=== PATIENT | female | born 1940 | race Caucasian/White ===

== ENCOUNTER 2020-11-14 04:19 | Observation (INO) | payer MEDICARE ==
[2020-11-14 04:46] LABS: Basophils % (A) 0 %; Eosinophils # (A) 0.1 k/uL (0-0.7); Eosinophils % (A) 2 %; HCT 41.8 % (34.0-46.0); HGB 14.1 gm/dL (11.4-16.0); Lymphocytes # (A) 0.7 k/uL (1.0-4.8); Lymphocytes % (A) 11 %; MCH 29.1 pg (25.0-35.0); MCHC 33.6 g/dL (31.0-37.0); MCV 86.6 fL (80.0-100.0); Mean Platelet Volume 9.3; Monocytes # (A) 0.2 k/uL (0-1.0); Monocytes % (A) 3 %; Neutrophils # (A) 5.2 k/uL (1.3-7.7); Neutrophils % (A) 83 %; Platelet Count 166 k/uL (150-450); RBC 4.83 m/uL (3.80-5.40); RDW 13.6 % (11.5-15.5); WBC 6.3 k/uL (3.8-10.6)
[2020-11-14 04:57] LABS: ALT 18 U/L (4-34); AST 35 U/L (14-36); African American GFR (CKD) 46 (>60 ml/min/1.73 sqM); Albumin 4.5 g/dL (3.5-5.0); Alcohol <10 mg/dL; Alkaline Phosphatase 60 U/L (38-126); Anion Gap 7 mmol/L; Blood Urea Nitrogen 23 mg/dL (7-17); Calcium 9.3 mg/dL (8.4-10.2); Carbon Dioxide 25 mmol/L (22-30); Chloride 106 mmol/L (98-107); Glucose 144 mg/dL (74-99); Non-African American GFR(CKD) 40 (>60 ml/min/1.73 sqM); Potassium 4.2 mmol/L (3.5-5.1); Sodium 138 mmol/L (137-145); Total Bilirubin 0.7 mg/dL (0.2-1.3); Total Protein 7.9 g/dL (6.3-8.2)
[2020-11-14 05:00] LABS: Partial Thromboplastin Time 23.3 sec (22.0-30.0); Prothrombin Time 10.6 sec (9.0-12.0)
--- NOTE | 2020-11-14 05:04 | ED ---
Altered Mental Status HPI - General Chief Complaint: Altered Mental Status Stated Complaint: Altered Mental Status Time Seen by Provider: 11/14/20 04:32 Source: patient Mode of arrival: ambulatory Limitations: altered mental status - History of Present Illness Initial Comments: This patient is an 79-year-old woman who is brought to the hospital by a byrodney tander who found her wandering outside. The patient does appear disoriented and she is not able to give any additional history about how she came to be wandering outside. She is denying complaints. Patient does request a blanket MD Complaint: confusion -: unknown Severity: moderate Consistency of Symptoms: unknown Context: unknown Associated Symptoms: denies other symptoms - Related Data Home Medications Medication Instructions Recorded Confirmed Atorvastatin [Lipitor] 10 mg PO DAILY 11/14/20 11/14/20 Citalopram Hydrobromide [CeleXA] 10 mg PO DAILY 11/14/20 11/14/20 Donepezil [Aricept] 10 mg PO DAILY 11/14/20 11/14/20 Meclizine [Antivert] 12.5 mg PO DAILY 11/14/20 11/14/20 amLODIPine [Norvasc] 5 mg PO DAILY 11/14/20 11/14/20 Allergies Allergy/AdvReac Type Severity Reaction Status Date / Time No Known Allergies Allergy Verified 11/14/20 10:17 Review of Systems ROS Statement: Those systems with pertinent positive or pertinent negative responses have been documented in the HPI. ROS Other: All systems not noted in ROS Statement are negative. Limitations: ROS unobtainable due to patients medical condition Respiratory: Denies: dyspnea Cardiovascular: Denies: chest pain Neurological: Denies: headache Past Medical History - Past Family History Mother Family Medical History: Cancer Additional Family Medical History / Comment(s): Mother at 36 yrs from uterine/breast cancer. Father Family Medical History: Cancer Additional Family Medical History / Comment(s): Father of liver cancer in his 60s. General Exam Limitations: altered mental status General appearance: alert, cachectic Head exam: Present: normocephalic, other (Left facial abrasion) Eye exam: Present: PERRL, EOMI. Absent: conjunctival injection, nystagmus ENT exam: Present: mucous membranes dry Neck exam: Present: normal inspection, full ROM. Absent: tenderness Respiratory exam: Present: normal lung sounds bilaterally. Absent: respiratory distress, wheezes, rales, rhonchi, stridor, chest wall tenderness Cardiovascular Exam: Present: regular rate, normal rhythm, normal heart sounds. Absent: systolic murmur, diastolic murmur, rubs, gallop GI/Abdominal exam: Present: soft. Absent: distended, tenderness, guarding, rebound, rigid, mass Extremities exam: Present: normal inspection, normal capillary refill. Absent: pedal edema, calf tenderness Back exam: Present: normal inspection. Absent: CVA tenderness (R), CVA tenderness (L), vertebral tenderness Neurological exam: Present: alert, CN II-XII intact, other (Neurologic exam slightly limited as patient only able to follow very simple commands only able to answer very simple questions. No apparent focal deficit). Absent: oriented X3 (Patient oriented only to person), motor sensory deficit Skin exam: Present: warm, dry, intact, normal color. Absent: rash Course Vital Signs 11/14/20 11/14/20 11/14/20 04:22 04:30 05:00 Temperature 97.7 F Pulse Rate 85 96 79 Respiratory 18 16 16 Rate Blood Pressure 175/84 170/81 167/81 O2 Sat by Pulse 97 96 96 Oximetry 11/14/20 11/14/20 11/14/20 05:30 07:49 11:40 Temperature 98.1 F Pulse Rate 83 80 65 Respiratory 14 16 16 Rate Blood Pressure 173/76 144/68 157/75 O2 Sat by Pulse 96 97 95 Oximetry 11/14/20 11/14/20 11/14/20 11:51 14:38 14:52 Temperature 98.7 F Pulse Rate 72 Respiratory 16 Rate Blood Pressure 153/87 141/87 O2 Sat by Pulse 97 95 97 Oximetry 11/14/20 11/14/20 11/14/20 18:22 22:04 23:44 Temperature 98.9 F 98.7 F Pulse Rate 67 73 71 Respiratory 18 18 18 Rate Blood Pressure 149/72 136/77 142/86 O2 Sat by Pulse 95 97 96 Oximetry Medical Decision Making - Medical Decision Making Patient is an 79-year-old woman who appears to have moderately severe underlying dementia. There may be some delirium as the patient does have urinary tract infection. We are not able to locate family member therefore patient will be admitted to start antibiotic therapy and has social work involvement to attempt to aid in contacting family. - Lab Data Result diagrams: 11/14/20 04:39 11/14/20 04:39 Lab Results 11/14/20 11/14/20 11/14/20 Range/Units 04:39 04:39 04:39 WBC 6.3 (3.8-10.6) k/uL RBC 4.83 (3.80-5.40) m/uL Hgb 14.1 (11.4-16.0) gm/dL Hct 41.8 (34.0-46.0) % MCV 86.6 (80.0-100.0) fL MCH 29.1 (25.0-35.0) pg MCHC 33.6 (31.0-37.0) g/dL RDW 13.6 (11.5-15.5) % Plt Count 166 (150-450) k/uL MPV 9.3 Neutrophils % 83 % Lymphocytes % 11 % Monocytes % 3 % Eosinophils % 2 % Basophils % 0 % Neutrophils # 5.2 (1.3-7.7) k/uL Lymphocytes # 0.7 L (1.0-4.8) k/uL Monocytes # 0.2 (0-1.0) k/uL Eosinophils # 0.1 (0-0.7) k/uL Basophils # 0.0 (0-0.2) k/uL PT 10.6 (9.0-12.0) sec INR 1.0 (<1.2) APTT 23.3 (22.0-30.0) sec Sodium 138 (137-145) mmol/L Potassium 4.2 (3.5-5.1) mmol/L Chloride 106 (98-107) mmol/L Carbon Dioxide 25 (22-30) mmol/L Anion Gap 7 mmol/L BUN 23 H (7-17) mg/dL Creatinine 1.02 (0.52-1.04) mg/dL Est GFR (CKD-EPI)AfAm 46 (>60 ml/min/1.73 sqM) Est GFR (CKD-EPI)NonAf 40 (>60 ml/min/1.73 sqM) Glucose 144 H (74-99) mg/dL Calcium 9.3 (8.4-10.2) mg/dL Total Bilirubin 0.7 (0.2-1.3) mg/dL AST 35 (14-36) U/L ALT 18 (4-34) U/L Alkaline Phosphatase 60 (38-126) U/L Troponin I (0.000-0.034) ng/mL Total Protein 7.9 (6.3-8.2) g/dL Albumin 4.5 (3.5-5.0) g/dL Urine Color Urine Appearance (Clear) Urine pH (5.0-8.0) Ur Specific [place] (1.001-1.035) Urine Protein (Negative) Urine Glucose (UA) (Negative) Urine Ketones (Negative) Urine Blood (Negative) Urine Nitrite (Negative) Urine Bilirubin (Negative) Urine Urobilinogen (<2.0) mg/dL Ur Leukocyte Esterase (Negative) Urine RBC (0-5) /hpf Urine WBC (0-5) /hpf Ur Squamous Epith Cells (0-4) /hpf Urine Bacteria (None) /hpf Serum Alcohol <10 mg/dL 11/14/20 11/14/20 Range/Units 04:39 05:38 WBC (3.8-10.6) k/uL RBC (3.80-5.40) m/uL Hgb (11.4-16.0) gm/dL Hct (34.0-46.0) % MCV (80.0-100.0) fL MCH (25.0-35.0) pg MCHC (31.0-37.0) g/dL RDW (11.5-15.5) % Plt Count (150-450) k/uL MPV Neutrophils % % Lymphocytes % % Monocytes % % Eosinophils % % Basophils % % Neutrophils # (1.3-7.7) k/uL Lymphocytes # (1.0-4.8) k/uL Monocytes # (0-1.0) k/uL Eosinophils # (0-0.7) k/uL Basophils # (0-0.2) k/uL PT (9.0-12.0) sec INR (<1.2) APTT (22.0-30.0) sec Sodium (137-145) mmol/L Potassium (3.5-5.1) mmol/L Chloride (98-107) mmol/L Carbon Dioxide (22-30) mmol/L Anion Gap mmol/L BUN (7-17) mg/dL Creatinine (0.52-1.04) mg/dL Est GFR (CKD-EPI)AfAm (>60 ml/min/1.73 sqM) Est GFR (CKD-EPI)NonAf (>60 ml/min/1.73 sqM) Glucose (74-99) mg/dL Calcium (8.4-10.2) mg/dL Total Bilirubin (0.2-1.3) mg/dL AST (14-36) U/L ALT (4-34) U/L Alkaline Phosphatase (38-126) U/L Troponin I 0.018 (0.000-0.034) ng/mL Total Protein (6.3-8.2) g/dL Albumin (3.5-5.0) g/dL Urine Color Yellow Urine Appearance Cloudy H (Clear) Urine pH 5.5 (5.0-8.0) Ur Specific [place] 1.017 (1.001-1.035) Urine Protein 1+ H (Negative) Urine Glucose (UA) Negative (Negative) Urine Ketones Negative (Negative) Urine Blood Trace H (Negative) Urine Nitrite Positive H (Negative) Urine Bilirubin Negative (Negative) Urine Urobilinogen <2.0 (<2.0) mg/dL Ur Leukocyte Esterase Large H (Negative) Urine RBC 8 H (0-5) /hpf Urine WBC >182 H (0-5) /hpf Ur Squamous Epith Cells <1 (0-4) /hpf Urine Bacteria Many H (None) /hpf Serum Alcohol mg/dL - EKG Data -: EKG Interpreted by De EKG shows normal: sinus rhythm (With occasional PAC), axis (Normal), intervals (Normal), QRS complexes (Normal), ST-T waves (Normal) Rate: normal (Rate 80 bpm) Disposition Clinical Impression: Altered mental status, Urinary tract infection Disposition: ADMITTED IP TO THIS HOSP Condition: Poor
--- NOTE | 2020-11-14 05:15 | CT ---
EXAM: CT Head Without Intravenous Contrast CLINICAL HISTORY: Altered mental status TECHNIQUE: Axial computed tomography images of the head/brain without intravenous contrast. CTDI is 49.27 mGy and DLP is 1080.4 mGy-cm. This CT exam was performed using one or more of the following dose reduction techniques: automated exposure control, adjustment of the mA and/or kV according to patient size, and/or use of iterative reconstruction technique. COMPARISON: No relevant prior studies available. FINDINGS: Brain: No evidence of acute transcortical infarct or acute intracranial hemorrhage. Patchy areas of decreased attenuation are seen in the bilateral periventricular and subcortical white matter, which may represent mild microangiopathy and/or demyelinating disease. Two probable chronic lacunar infarcts in the right basal ganglia, largest of which measures up to 0.5 cm in greatest axial dimension. Ventricles: Asymmetric enlargement of the left lateral ventricle, likely secondary to ex vacuo dilatation. Bones/joints: Unremarkable. No acute fracture. Soft tissues: Unremarkable. Sinuses: Mild mucosal thickening involving the left sphenoid sinus. Status post right maxillary antrostomy. Status post right ethmoidectomy. Mastoid air cells: Partially opacified right mastoid air cells. IMPRESSION: 1. No evidence of acute transcortical infarct or acute intracranial hemorrhage. 2. Patchy areas of decreased attenuation in the bilateral periventricular and subcortical white matter, which may represent mild microangiopathy and/or demyelinating disease. 3. Two probable chronic lacunar infarcts in the right basal ganglia, largest of which measures up to 0.5 cm in greatest axial dimension. MRI of the brain may be obtained for further evaluation. 4. Partially opacified right mastoid air cells. Correlate clinically for mastoiditis.
--- NOTE | 2020-11-14 05:22 | XR ---
EXAM: XR Chest, 1 View CLINICAL HISTORY: altered mental status TECHNIQUE: Frontal view of the chest. COMPARISON: No relevant prior studies available. FINDINGS: Lungs: Unremarkable. No consolidation. Pleural space: Unremarkable. No pneumothorax. Heart: Heart is at the upper limits of normal/mildly enlarged. Mediastinum: Unremarkable. Bones/joints: Unremarkable. Vasculature: Aneurysmal dilatation of the descending thoracic aorta likely present. IMPRESSION: 1. Heart is at the upper limits of normal/mildly enlarged. 2. Aneurysmal dilatation of the descending thoracic aorta likely present. CTA of the chest is recommended for further evaluation.
[2020-11-14 05:59] LABS: Appearance,Urine Cloudy (Clear); Bacteria,Urine Many /hpf; Bilirubin,Urine Negative (Negative); Blood,Urine Trace (Negative); Color,Urine Yellow; Glucose,Urine (UA) Negative (Negative); Ketones,Urine Negative (Negative); Leukocyte Esterase,Urine Large (Negative); Nitrite,Urine Positive (Negative); PH, Urine 5.5 (5.0-8.0); Protein,Urine 1+ (Negative); RBC,Urine 8 /hpf (0-5); Specific Gravity,Urine 1.017 (1.001-1.035); Squamous Epithelial Cell,Urine <1 /hpf (0-4); Urobilinogen,Urine <2.0 mg/dL (<2.0); WBC,Urine >182 /hpf (0-5)
--- NOTE | 2020-11-14 06:20 | XR ---
EXAMINATION TYPE: XR hand complete LT DATE OF EXAM: 11/14/2020 CLINICAL HISTORY: Pain after fall injury. TECHNIQUE: Frontal, lateral and oblique images of the left hand are obtained. COMPARISON: None. FINDINGS: The mineralization is present. There is no acute fracture/dislocation evident in the left hand. Moderate narrowing throughout the PIP and DIP joints of the phalanges. Mild to moderate narrowi ng throughout the MCP joints. Moderate narrowing and spurring of base of first metacarpal. Mild to mo derate multifocal areas of soft tissue swelling greatest over the PIP joints. IMPRESSION: There is no acute fracture or dislocation in the left hand.
[2020-11-14] MEDS ORDERED: ACETAMINOPHEN TAB 325 MG TAB PO PRN (07:51)
[2020-11-14] MEDS ORDERED: NALOXONE 0.4 MG/ML 1 ML VIAL IV PRN (07:51)
--- NOTE | 2020-11-14 10:06 | P.HPIM ---
History of Present Illness This is a pleasant 79 years old female with past medical history of obstructive sleep apnea and osteoporosis, urinary incontinence, bladder prolapse, asthma, dementia, gastroesophageal reflux disease, hypertension. She is patient of Dr. Nickie ureña She was admitted to the emergency room because a stranger dropped her daughter found her on the road. Patient is confused. Patient had contusion and bilateral knee abrasions. Patient was found to have UTI in the emergency room and staff were trying to discharge her home but no family member could be located so patient was admitted for further management and social media editor evalua darlene when I saw the patient in the emergency room she was more awake, She couldn't remember her name but she was used to time, place or person. She has some difficulty remembering soft however she stated that she was at her home and decided to have a walk down the road, after short distance she felt tired and her legs are getting away so she decided to sit down, however she could not remember what happened after that however she denies syncope or dizziness. She denies any other symptoms, no chest pain or dyspnea or coughing. No urinary complaints like dysuria however she admits of chronic incontinence. No diarrhea. No headache or weakness or numbness in the extremities. No slurred speech or blurred vision Vitals are stable, blood pressure slightly elevated with systolic 144-173/arias tolic of 68-81 Left showing unremarkable CBC, INR, BMP, liver enzymes. A little less than 10. Urinalysis is suspicious for infection with positive nitrite and large leukocyte esterase and WBCs more than 182 In the emergency room she received Tylenol, ceftriaxone. Hand x-ray: No acute fracture or dislocation. Chest x-ray: Heart is in the upper limit of normal, mildly enlarged. Aneurysmal dilatation of the descending thoracic aorta CTA of the chest is recommended CT of the brain: No acute infarction. Patchy areas of decreased attenuation in the bilateral periventricular and subcortical white matter which may represent mild microangiopathy and/or demyelinating disease 2. Probable chronic lacunar infarcts in the right basal ganglia largest of which measuring up to 0.5 cm in the greatest axial dimension. Review of Systems n/a Medications and Allergies Allergies Allergy/AdvReac Type Severity Reaction Status Date / Time Unable to Assess Allergy Verified 11/14/20 05:40 Physical Exam Vitals: Vital Signs Temp Pulse Resp BP Pulse Ox 11/14/20 07:49 98.1 F 80 16 144/68 97 11/14/20 05:30 83 14 173/76 96 11/14/20 05:00 79 16 167/81 96 11/14/20 04:30 96 16 170/81 96 11/14/20 04:22 97.7 F 85 18 175/84 97 Intake and Output 11/13/20 11/14/20 11/14/20 22:59 06:59 14:59 Other: Weight 58.967 kg -GENERAL: The patient is confused, not in any acute distress. Well developed, well nourished. HEENT: Pupils are round and equally reacting to light. EOMI. No scleral icterus. No conjunctival pallor. Normocephalic, atraumatic. No pharyngeal erythema. No thyromegaly. CARDIOVASCULAR: S1 and S2 present. No murmurs, rubs, or gallops. PULMONARY: Chest is clear to auscultation, no wheezing or crackles. ABDOMEN: Soft, nontender, nondistended, normoactive bowel sounds. No palpable o rganomegaly. MUSCULOSKELETAL: No joint swelling or deformity. EXTREMITIES: No cyanosis, clubbing, or pedal edema. NEUROLOGICAL: Gross neurological examination did not reveal any focal deficits. SKIN: No rashes. No petechiae Results CBC & Chem 7: 11/14/20 04:39 11/14/20 04:39 Labs: Abnormal Lab Results - Last 24 Hours (Table) 11/14/20 11/14/20 11/14/20 Range/Units 04:39 04:39 05:38 Lymphocytes # 0.7 L (1.0-4.8) k/uL BUN 23 H (7-17) mg/dL Glucose 144 H (74-99) mg/dL Urine Appearance Cloudy H (Clear) Urine Protein 1+ H (Negative) Urine Blood Trace H (Negative) Urine Nitrite Positive H (Negative) Ur Leukocyte Esterase Large H (Negative) Urine RBC 8 H (0-5) /hpf Urine WBC >182 H (0-5) /hpf Urine Bacteria Many H (None) /hpf Assessment and Plan Assessment: Acute urinary tract infection Altered mental status mostly secondary to metabolic/toxic encephalopathy 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 Continue with ceftriaxone, follow-up urine culture. Continue gentle hydration. Consult neurology. Also ask for hemoglobin A1c, TSH and B12/folate levels.also we'll check another set of troponin cardroom worker consult for placement with PT/OT evaluation Labs and medication were reviewed.. Continue same treatment. Continue with symptomatic treatment. Resume home medication. Monitor lytes and vitals. DVT and GI prophylaxis. Further recommendations depends on the clinical course of the patient DVT prophylaxis: Subcutaneous heparin GI Prophylaxis: Pepcid PT/OT: Pending Prognosis is guarded
[2020-11-14] MEDS: HEPARIN SODIUM,PORCINE 5,000 UNIT/ML 1 ML VIAL SQ SCH ×2 (11:40→22:32)
[2020-11-14] MEDS: FAMOTIDINE 20 MG/2 ML VIAL IV SCH (11:40)
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
[2020-11-14] MEDS: ASPIRIN 81 MG PO SCH (14:49)
[2020-11-14 17:17] LABS: Hemoglobin A1C 5.4 % (4.0-6.0)
--- NOTE | 2020-11-14 18:38 | EEG ---
ELECTROENCEPHALOGRAM REPORT DATE OF SERVICE: 11/14/2020. CLINICAL HISTORY: This is an 79-year-old woman with altered mental status. The video EEG is obtained to evaluate for seizure and epileptiform activity. RELEVANT MEDICATION: Patient is not on any antiepileptic drug. EEG TYPE: A routine 21-channel EEG is performed with video using the 10/20 electrode placement system. DESCRIPTION: Wakefulness and drowsiness are obtained. During wakefulness, there is a posterior- dominant rhythm of 5-6 hertz activity that is well modulated and well sustained. During drowsiness there is a slowing and attenuation of the background activity. There is no physiological stage II sleep. There is occasional to frequent moderate to high voltage of generalized intermittent rhythmic delta activity (GIRDA) with frontal predominance. There is no focal slowing. Interictal and ictal are none. ACTIVATION PROCEDURES: Photic stimulation does not evoke a posterior driving response. Hyperventilation is not performed. CLINICAL INTERPRETATION: This is an abnormal routine EEG. The background slowing is suggestive of moderate encephalopathy of unspecified etiology. There are no focal slowing, epileptiform discharge or seizure on the EEG. Clinical correlation is recommended. MMODL / IJN: [id number] / DORON
[2020-11-14 19:56] LABS: Folate, Serum 15.2 ng/mL
[2020-11-14] MEDS: ATORVASTATIN 20 MG TAB PO SCH (22:31)
[2020-11-15] MEDS: CITALOPRAM HYDROBROMIDE 10 MG TAB PO SCH (07:54)
[2020-11-15] MEDS: DONEPEZIL 10 MG TAB PO SCH (07:54)
[2020-11-15] MEDS: ASPIRIN 81 MG PO SCH (07:54)
[2020-11-15] MEDS: HEPARIN SODIUM,PORCINE 5,000 UNIT/ML 1 ML VIAL SQ SCH ×2 (07:55→20:04)
[2020-11-15] MEDS: FAMOTIDINE 20 MG/2 ML VIAL IV SCH (07:55)
[2020-11-15] MEDS ORDERED: amLODIPine 5 MG TAB PO SCH (09:00)
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
[2020-11-15 13:26] LABS: Glucose,Whole Blood 133 mg/dL (75-99)
[2020-11-15] MEDS: ATORVASTATIN 20 MG TAB PO SCH (20:04)
[2020-11-15] MEDS ORDERED: diphenhydrAMINE 50 MG/ML 1 ML VIAL IVP STA (23:07)
[2020-11-16] MEDS: amLODIPine 5 MG TAB PO SCH ×3 (00:07→20:10)
[2020-11-16] MEDS: CITALOPRAM HYDROBROMIDE 10 MG TAB PO SCH (09:47)
[2020-11-16] MEDS: FAMOTIDINE 20 MG TAB PO SCH (09:47)
[2020-11-16] MEDS: ASPIRIN 81 MG PO SCH (09:47)
[2020-11-16] MEDS: HEPARIN SODIUM,PORCINE 5,000 UNIT/ML 1 ML VIAL SQ SCH ×2 (09:47→20:10)
[2020-11-16] MEDS: DONEPEZIL 10 MG TAB PO SCH (09:48)
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
[2020-11-16] MEDS: ATORVASTATIN 20 MG TAB PO SCH (20:10)
[2020-11-17 03:45] VITALS: TEMP 98.3
--- NOTE | 2020-11-17 07:33 | ECHOF ---
Referral Reason:chest pain MEASUREMENTS -------- HEIGHT: 154.9 cm WEIGHT: 74.8 kg BP: RVIDd: 3.1 cm (< 3.3) IVSd: 1.1 cm (0.6 - 1.1) LVIDd: 4.2 cm (3.9 - 5.3) LVPWd: 1.0 cm (0.6 - 1.1) IVSs: 1.4 cm LVIDs: 2.5 cm LVPWs: 1.5 cm LA Diam: 3.4 cm (2.7 - 3.8) LAESV Index (A-L): 18.32 ml/m Ao Diam: 3.4 cm (2.0 - 3.7) AV Cusp: 2.0 cm (1.5 - 2.6) MV EXCURSION: 10.629 mm (> 18.000) MV EF SLOPE: 60 mm/s (70 - 150) EPSS: 0.6 cm MV E Thierry: 0.90 m/s MV DecT: 257 ms MV A Thierry: 1.11 m/s MV E/A Ratio: 0.81 RAP: 5.00 mmHg RVSP: 38.79 mmHg FINDINGS -------- Sinus rhythm. This was a technically good study. The left ventricular size is normal. There is borderline concentric left ventricular hypertrophy. Overall left ventricular systolic function is normal with, an EF between 60 - 65 %. The right ventricle is normal in size. Normal LA size by volume 22+/-6 ml/m2. The right atrium is normal in size. Interatrial and interventricular septum intact. The aortic valve is trileaflet and appears structurally normal. Mild mitral regurgitation is present. [id number] tricuspid regurgitation present. There is mild pulmonary hypertension. The right ventricular systolic pressure, as measured by Doppler, is 38.79mmHg. Moderate pulmonic regurgitation. The aortic root size is normal. Normal inferior vena cava with normal inspiratory collapse consistent with estimated right atrial pre ssure of 5 mmHg. There is no pericardial effusion. CONCLUSIONS -------- 1. The left ventricular size is normal. 2. There is borderline concentric left ventricular hypertrophy. 3. Overall left ventricular systolic function is normal with, an EF between 60 - 65 %. 4. Mild mitral regurgitation is present. 5. [id number] tricuspid regurgitation present. 6. There is mild pulmonary hypertension. 7. The right ventricular systolic pressure, as measured by Doppler, is 38.79mmHg. 8. Moderate pulmonic regurgitation. 9. There is no pericardial effusion. DOBBY LOOM FIXER: Sarah Harris RDCS
[2020-11-17 08:05] VITALS: RESP 18
[2020-11-17] MEDS: CITALOPRAM HYDROBROMIDE 10 MG TAB PO SCH (08:07)
[2020-11-17] MEDS: ASPIRIN 81 MG PO SCH (08:07)
[2020-11-17] MEDS: amLODIPine 5 MG TAB PO SCH (08:07)
[2020-11-17] MEDS: DONEPEZIL 10 MG TAB PO SCH (08:07)
[2020-11-17] MEDS: FAMOTIDINE 20 MG TAB PO SCH (08:07)
[2020-11-17] MEDS: HEPARIN SODIUM,PORCINE 5,000 UNIT/ML 1 ML VIAL SQ SCH (08:07)
--- NOTE | 2020-11-17 09:19 | P.PN ---
Subjective Progress Note Date: 11/17/20 Upon seeing the patient today and she says she's doing better today compared to her initial presentation. Objective - Vital Signs Vital signs: Vital Signs Temp 98.3 F 11/17/20 07:00 Pulse 66 11/17/20 07:00 Resp 18 11/17/20 07:00 BP 167/77 11/17/20 07:00 Pulse Ox 95 11/17/20 07:00 Intake & Output 11/16/20 11/17/20 11/17/20 18:59 06:59 18:59 Intake Total 100 Balance 100 Intake: Oral 100 Other: Voiding Method Diaper Diaper Incontinent Incontinent # Voids 2 2 - Exam GENERAL: The patient is lying in bed and is not in acute distress. NEUROLOGICAL: Higher mental function: The patient is awake, alert, oriented to self. With options she stated she was at the hospital. Able to follow simple commands. No neglect. Cranial nerves: The pupils are round, equal and reactive to light. Visual botello hard to assess because of patient's cooperation. Facial sensation is normal to touch throughout. The facial strength is normal throughout. Hearing is moderately decreased bilaterally. Tongue is midline and moved [id number] without any difficulty. No dysarthria is noted. Has oral/buccal chewing movement Motor: Gait is deferred. The strength is able to lift all extremities above gravity without any focality Normal tone and bulk. Has tremor with action of both hand or at end of task. At few times at I felt there was right hand tremor but predominately at rest no tremor and it was tremor with predominately end action. Cerebellum: Unable to assess Sensation: Sensation is normal to touch throughout. Reflexes (right/left): 3+ throughout uppers and 1-2 at knees but 1+ at ankles Plantars are mute bilaterally. - Labs CBC & Chem 7: 11/14/20 04:39 11/14/20 04:39 Labs: Microbiology - Last 24 Hours (Table) 11/14/20 05:38 Urine Culture - Final Urine,Catheterized Escherichia coli Assessment and Plan Assessment: This is an 79-year-old woman that was brought to the emergency department on 11/14/2020 because of confusion. She was found to have urinary tract infection. 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 Patchy area of decreased attenuation bilateral periventricular and subcortical white matter which may represent mild microangiopathic the end or edema disease. 2 probable chronic lacunar infarct in the right basal ganglia, this was measured up to 0.5 cm in greatest axial dye mentioned. MRI of the brain may be obtained for further evaluation. Partially opacified right mastoid air cells at. Correlate clinically for mastoiditis. I personally reviewed that CT of the head there is no acute or subacute ischemia. There is no intraparenchymal hemorrhage at. I don't think the patient has a demyelinating lesions. TSH: 1.64 (normal); vitamin B12: 482 (normal); folate: 15.2 (normal): hemoglobin A1c: 5.4 (normal). I ordered a routine EEG. I will not start the patient on antiepileptic drugs unless there is epileptiform discharges or seizure on the EEG. EEG on 11/14/20: It was an abnormal EEG. The background slowing is suggestive of moderate encephalopathy of unspecific etiology. There are no focal slowing, epileptiform discharges or seizure on the EEG. Continue aspirin 81 mg and Lipitor 20 mg daily. 2-D echo was reported as borderline concentric left ventricular hypertrophy. Ejection fraction of 66 5%. Moderate pulmonary regurgitation. Normal left atrial size. There is mild to moderate tricuspid regurgitation present. I recommended the patient to be on propanolol which can treat the her hyper tension as well as essential tremor. PT and OT are consulted Patient is on Aricept 10mg daily. Upon discharge the patient needs to follow-up with a neurologist within 2 weeks as an outpatient as well a neuropsych evaluation as outpatient. There is no further work-up needed. The plan is discussed with the patient's primary team (Dr. Nesbitt) and her nurse. Victorino Cosby M.D. Neuro-hospitalist Time with Patient: Less than 30
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
[2020-11-17] MEDS ORDERED: PROPRANOLOL 10 MG TAB PO SCH (12:00)
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
[2020-11-17 15:26] VITALS: BP 152/54; PULSE 67
--- NOTE | 2020-11-18 08:21 | CDI ---
Documentation Clarification Form Date: 11/18/2020 07:57:00 AM From: Malathi Asencio Phone: If you have a question about this query, please contact Aide Rodríguez, Residential Case Manager at [phone] between 8am and 5pm. Admit Date: 11/14/2020 07:51:00 AM Patient Name: Maryjane Ochoa Visit Number: [id number] Discharge Date: 11/17/2020 04:12:00 PM ATTENTION: The Clinical Documentation Specialists (CDI) and [facility] Coding Staff appreciate your assistance in clarifying documentation. Please respond to the clarification below the line at the bottom and electronically sign. The CDI & [facility] Coding staff will review the response and follow-up if needed. Please note: Queries are made part of the Legal Health Record. If you have any questions, please contact the author of this message via ITS. Dr. Schneider E Sheet Per neurology consult and PN "Altered mental status likely due to underlying UTI (septic encephalopathy). Please clarify if patient had sepsis or was sepsis ruled out. History/Risk Factors: E coli UTI. Patient with AMS. WBC: 6.3 Vitals signs: 97.7 F, 85 bpm, 18, 175/84, 97% RA Treatment: Ceftriaxone, gentle hydration In your professional opinion, please clarify if these findings signify one of the following conditions: [ ] Sepsis POA [ ] Sepsis, Not POA [ ] Sepsis ruled out [ ] Severe Sepsis with organ failure [ ] Septic Shock [ ] SIRS, without underlying infectious process [ ] Other, please specify [ ] Unable to determine SIRS Criteria: 2 or more of the following may indicate SIRS Temperature < 96.8F (36C) or > 101.0F (38.3C) Heart Rate > 90 bpm Respiratory Rate > 20 breaths/min or PaCO2 < 32 mmHg White Blood Cell Count > 12,000 or < 4,000 cells/mm3 or > 10% bands no sepsis MTDD
== END 2020-11-17 16:12 | disposition home health service (06) ==
LOC: EC 04:19 → 5NMEDONC 07:51 → INTOOBSV 07:51 → 4SSUR 18:01 → UNDODISIN 11-17 16:12
PROVIDERS: ADMIT Hospitalist; ATTEND Hospitalist
DX: N39.0 Urinary tract infection, site not specified (principal); G93.41 Metabolic encephalopathy; G30.9 Alzheimer's disease, unspecified; F02.80 Dementia in other diseases classified elsewhere, unspecified severity, without behavioral disturbance, psychotic disturbance, mood disturbance, and anxiety; F01.50 Vascular dementia, unspecified severity, without behavioral disturbance, psychotic disturbance, mood disturbance, and anxiety; R07.9 Chest pain, unspecified; M81.0 Age-related osteoporosis without current pathological fracture; I73.9 Peripheral vascular disease, unspecified; J45.909 Unspecified asthma, uncomplicated; R32 Unspecified urinary incontinence; I71.2 Thoracic aortic aneurysm, without rupture; I49.1 Atrial premature depolarization; E78.5 Hyperlipidemia, unspecified; G25.0 Essential tremor; G47.33 Obstructive sleep apnea (adult) (pediatric); K21.9 Gastro-esophageal reflux disease without esophagitis; I10 Essential (primary) hypertension; E04.1 Nontoxic single thyroid nodule; N81.10 Cystocele, unspecified; I07.1 Rheumatic tricuspid insufficiency; I37.1 Nonrheumatic pulmonary valve insufficiency; S80.211A Abrasion, right knee, initial encounter; S80.212A Abrasion, left knee, initial encounter; S00.81XA Abrasion of other part of head, initial encounter; W19.XXXA Unspecified fall, initial encounter; Y93.01 Activity, walking, marching and hiking; Z20.822 Contact with and (suspected) exposure to COVID-19; Z79.82 Long term (current) use of aspirin; Z79.899 Other long term (current) drug therapy; Z85.828 Personal history of other malignant neoplasm of skin; Z86.73 Personal history of transient ischemic attack (TIA), and cerebral infarction without residual deficits; Z99.89 Dependence on other enabling machines and devices; Z90.49 Acquired absence of other specified parts of digestive tract; Z80.0 Family history of malignant neoplasm of digestive organs; Z80.3 Family history of malignant neoplasm of breast; Z80.49 Family history of malignant neoplasm of other genital organs
CPT/HCPCS: 96376; 96366 ×3; 96372 ×4; 96375 ×2; 96365; 99285; 36415; 94760; 95819; 93005 ×2; 93306; 97116; 97161; 97535 ×2; 97165; 80053; 84443; 82607; 82746; 84484 ×2; 85025; 85610; 85730; 81001; 87086; 87077; 87186; 83036; 87635; 73130; 71045; 70450; G0378 ×5; G0480; J1200; J1644 ×4; J0696 ×4; 80320

== ENCOUNTER 2021-01-05 17:27 | Observation (INO) | payer MEDICARE ==
[2021-01-05 18:36] LABS: Basophils # (A) 0.1 k/uL (0-0.2); Basophils % (A) 1 %; Eosinophils # (A) 0.5 k/uL (0-0.7); Eosinophils % (A) 10 %; HCT 40.3 % (34.0-46.0); HGB 13.7 gm/dL (11.4-16.0); Lymphocytes # (A) 1.1 k/uL (1.0-4.8); Lymphocytes % (A) 23 %; MCH 29.6 pg (25.0-35.0); MCHC 34.1 g/dL (31.0-37.0); MCV 86.7 fL (80.0-100.0); Mean Platelet Volume 8.5; Monocytes # (A) 0.3 k/uL (0-1.0); Monocytes % (A) 6 %; Neutrophils # (A) 2.8 k/uL (1.3-7.7); Neutrophils % (A) 58 %; Platelet Count 172 k/uL (150-450); RBC 4.64 m/uL (3.80-5.40); RDW 13.3 % (11.5-15.5); WBC 4.9 k/uL (3.8-10.6)
[2021-01-05 18:47] LABS: INR 0.9 (<1.2); Partial Thromboplastin Time 23.8 sec (22.0-30.0); Prothrombin Time 10.2 sec (9.0-12.0)
[2021-01-05 18:48] LABS: Appearance,Urine Cloudy (Clear); Bacteria,Urine Rare /hpf; Bilirubin,Urine Negative (Negative); Blood,Urine Small (Negative); Budding Yeast,Urine Occasional /hpf; Color,Urine Yellow; Glucose,Urine (UA) Negative (Negative); Ketones,Urine Negative (Negative); Leukocyte Esterase,Urine Large (Negative); Mucus,Urine Rare /hpf; Nitrite,Urine Negative (Negative); PH, Urine 5.5 (5.0-8.0); Protein,Urine 1+ (Negative); RBC,Urine 13 /hpf (0-5); Specific Gravity,Urine 1.015 (1.001-1.035); Squamous Epithelial Cell,Urine <1 /hpf (0-4); Urobilinogen,Urine <2.0 mg/dL (<2.0); WBC,Urine >182 /hpf (0-5)
[2021-01-05 18:53] LABS: ALT 15 U/L (4-34); AST 29 U/L (14-36); Acetaminophen <10.0 ug/mL; African American GFR (CKD) 77 (>60 ml/min/1.73 sqM); Alkaline Phosphatase 55 U/L (38-126); Anion Gap 5 mmol/L; Blood Urea Nitrogen 16 mg/dL (7-17); Calcium 9.3 mg/dL (8.4-10.2); Carbon Dioxide 29 mmol/L (22-30); Chloride 107 mmol/L (98-107); Creatine Kinase 53 U/L (30-135); Glucose 121 mg/dL (74-99); Non-African American GFR(CKD) 67 (>60 ml/min/1.73 sqM); Potassium 3.9 mmol/L (3.5-5.1); Salicylate <1.0 mg/dL; Sodium 141 mmol/L (137-145); Total Bilirubin 0.4 mg/dL (0.2-1.3); Total Protein 7.2 g/dL (6.3-8.2)
[2021-01-05 18:54] LABS: Amphetamine Screen,Urine Not Detected (NotDetected); Barbiturate Screen,Urine Not Detected (NotDetected); Benzodiazepines Screen,Urine Not Detected (NotDetected); Cocaine Screen,Urine Not Detected (NotDetected); Methadone Screen, Urine Not Detected (NotDetected); Opiate Screen,Urine Not Detected (NotDetected); Oxycodone Screen, Urine Not Detected (NotDetected); Phencyclidine Screen,Urine Not Detected (NotDetected); Tricyclic Antidepressant,Urine Not Detected (NotDetected); Urn Cannabinoid Scrn Not Detected (NotDetected)
--- NOTE | 2021-01-05 19:45 | CT ---
EXAMINATION TYPE: CT brain wo con DATE OF EXAM: 01/05/2021 COMPARISON: 11/14/2020 HISTORY: Altered mental status. CT DLP: 1099.4 mGycm Automated exposure control for dose reduction was used. There is cerebral cortical atrophy. There is no mass effect nor midline shift. There is no sign of in tracranial hemorrhage. There is some hypodensity in the right internal capsule consistent with old 5 mm lacunar infarct. The calvarium is intact. There is mild enlargement of the ventricles. IMPRESSION: Cerebral atrophy and chronic small vessel ischemia. Mild hydrocephalus. No change compared to old exa m.
[2021-01-05] MEDS ORDERED: cefTRIAXone IN SWFI 1,000 MG/10 ML SYRINGE IVP STA (20:11)
[2021-01-05] MEDS ORDERED: NALOXONE 0.4 MG/ML 1 ML VIAL IV PRN (20:45)
--- NOTE | 2021-01-05 20:45 | ED ---
Altered Mental Status HPI - General Chief Complaint: Altered Mental Status Stated Complaint: Confused Source: patient Mode of arrival: ambulatory Limitations: no limitations - History of Present Illness Initial Comments: He 1-year-old female with past medical history of dementia, hypertension who presents to the emergency department with reported altered mental status. Son does accompany the patient at bedside. He states that over the past couple of the days the patient has had increasing confusion. Reports 2 similar episode in October of this she had when she had a urinary tract infection. He denies any recent medication changes. Patient was seen by her primary care doctor 1.5 weeks ago and was doing fine. She subsequently developed diarrhea and has had some incontinence. He denies any exposure to Covid. No fevers or chills. No recent falls with head injury. No other alleviating, precipitating or modifying factors - Related Data Home Medications Medication Instructions Recorded Confirmed Citalopram Hydrobromide [CeleXA] 10 mg PO DAILY 11/14/20 01/05/21 Donepezil [Aricept] 10 mg PO DAILY 11/14/20 01/05/21 Meclizine [Antivert] 12.5 mg PO TID 11/14/20 01/05/21 amLODIPine [Norvasc] 5 mg PO DAILY 11/14/20 01/05/21 Atorvastatin Calcium [Lipitor] 10 mg PO DAILY 01/05/21 01/05/21 Previous Rx's Medication Instructions Recorded Acetaminophen Tab [Tylenol] 325 mg PO Q6HR PRN tab 11/16/20 Aspirin EC [Ecotrin Low Dose] 81 mg PO DAILY #30 tablet. 11/16/20 Propranolol [Inderal] 10 mg PO TID #90 tab 11/17/20 Allergies Allergy/AdvReac Type Severity Reaction Status Date / Time No Known Allergies Allergy Verified 01/05/21 18:44 Review of Systems ROS Statement: Those systems with pertinent positive or pertinent negative responses have been documented in the HPI. ROS Other: All systems not noted in ROS Statement are negative. Past Medical History Past Medical History: Asthma, Cancer, Chest Pain / Angina, Dementia, GERD/Reflux , Hyperlipidemia, Hypertension, Memory Impairment, Sleep Apnea/CPAP/BIPAP, Thyroid Disorder Additional Past Medical History / Comment(s): Recent episodes of agitated "spells", bronchitis, osteoporosis, urinary incontinence/cystocele/prolapse, severe GERD, LUIS but will not use device, thyroid nodule, skin cancer. History of Any Multi-Drug Resistant Organisms: None Reported Past Surgical History: Breast Surgery, Cholecystectomy Additional Past Surgical History / Comment(s): R breast benign lumpectomy, skin cancer removals, sinus surgery Past Anesthesia/Blood Transfusion Reactions: No Reported Reaction Past Psychological History: Anxiety Smoking Status: Never smoker - Past Family History Mother Family Medical History: Cancer Additional Family Medical History / Comment(s): Mother at 36 yrs from uterine/breast cancer. Father Family Medical History: Cancer Additional Family Medical History / Comment(s): Father of liver cancer in his 60s. General Exam Limitations: altered mental status General appearance: alert, in no apparent distress Head exam: Present: atraumatic, normocephalic, normal inspection Eye exam: Present: normal appearance, PERRL, EOMI. Absent: scleral icterus, conjunctival injection, periorbital swelling ENT exam: Present: normal exam, mucous membranes moist Neck exam: Present: normal inspection. Absent: tenderness, meningismus, lymphadenopathy Respiratory exam: Present: normal lung sounds bilaterally. Absent: respiratory distress, wheezes, rales, rhonchi, stridor Cardiovascular Exam: Present: regular rate, normal rhythm, normal heart sounds. Absent: systolic murmur, diastolic murmur, rubs, gallop, clicks GI/Abdominal exam: Present: soft, normal bowel sounds. Absent: distended, tenderness, guarding, rebound, rigid Extremities exam: Present: normal inspection, full ROM, normal capillary refill. Absent: tenderness, pedal edema, joint swelling, calf tenderness Back exam: Present: normal inspection Neurological exam: Present: alert, CN II-XII intact, other (nonsensical speech) Psychiatric exam: Present: normal affect, normal mood Skin exam: Present: warm, dry, intact, normal color. Absent: rash Course Vital Signs 01/05/21 01/05/21 01/05/21 17:46 19:55 20:46 Temperature 97.8 F Pulse Rate 60 57 L 63 Pulse Rate [ Radial] Respiratory 18 18 18 Rate Blood Pressure 202/80 195/80 143/89 Blood Pressure [Left Arm] O2 Sat by Pulse 97 97 96 Oximetry 01/06/21 01/06/21 01/06/21 06:30 07:30 10:00 Temperature 97.6 F 98.0 F 98.1 F Pulse Rate 64 81 Pulse Rate [ 75 Radial] Respiratory 16 16 16 Rate Blood Pressure 174/71 159/77 Blood Pressure 138/67 [Left Arm] O2 Sat by Pulse 95 99 82 L Oximetry Medical Decision Making - Medical Decision Making Upon arrival patient was placed into room 4. History is obtained from son. I did recommend laboratory studies which demonstrated a urinary tract infection with greater than 182 white blood cells and moderate white blood cell clumps. UDS is negative. Salicylates and acetaminophen are negative. Patient was started on Rocephin. Due to the patient's altered mental status is recommend admission for which the son did agree to. Patient is currently awaiting a bed on the floor - Lab Data Result diagrams: 01/06/21 07:53 01/06/21 07:53 Lab Results 01/05/21 01/05/21 01/05/21 Range/Units 18:22 18:22 18:22 WBC 4.9 (3.8-10.6) k/uL RBC 4.64 (3.80-5.40) m/uL Hgb 13.7 (11.4-16.0) gm/dL Hct 40.3 (34.0-46.0) % MCV 86.7 (80.0-100.0) fL MCH 29.6 (25.0-35.0) pg MCHC 34.1 (31.0-37.0) g/dL RDW 13.3 (11.5-15.5) % Plt Count 172 (150-450) k/uL MPV 8.5 Neutrophils % 58 % Lymphocytes % 23 % Monocytes % 6 % Eosinophils % 10 % Basophils % 1 % Neutrophils # 2.8 (1.3-7.7) k/uL Lymphocytes # 1.1 (1.0-4.8) k/uL Monocytes # 0.3 (0-1.0) k/uL Eosinophils # 0.5 (0-0.7) k/uL Basophils # 0.1 (0-0.2) k/uL PT 10.2 (9.0-12.0) sec INR 0.9 (<1.2) APTT 23.8 (22.0-30.0) sec Sodium (137-145) mmol/L Potassium (3.5-5.1) mmol/L Chloride (98-107) mmol/L Carbon Dioxide (22-30) mmol/L Anion Gap mmol/L BUN (7-17) mg/dL Creatinine (0.52-1.04) mg/dL Est GFR (CKD-EPI)AfAm (>60 ml/min/1.73 sqM) Est GFR (CKD-EPI)NonAf (>60 ml/min/1.73 sqM) Glucose (74-99) mg/dL Calcium (8.4-10.2) mg/dL Total Bilirubin (0.2-1.3) mg/dL AST (14-36) U/L ALT (4-34) U/L Alkaline Phosphatase (38-126) U/L Ammonia (<30) umol/L Creatine Kinase (30-135) U/L Troponin I (0.000-0.034) ng/mL Total Protein (6.3-8.2) g/dL Albumin (3.5-5.0) g/dL Urine Color Yellow Urine Appearance Cloudy H (Clear) Urine pH 5.5 (5.0-8.0) Ur Specific [place] 1.015 (1.001-1.035) Urine Protein 1+ H (Negative) Urine Glucose (UA) Negative (Negative) Urine Ketones Negative (Negative) Urine Blood Small H (Negative) Urine Nitrite Negative (Negative) Urine Bilirubin Negative (Negative) Urine Urobilinogen <2.0 (<2.0) mg/dL Ur Leukocyte Esterase Large H (Negative) Urine RBC 13 H (0-5) /hpf Urine WBC >182 H (0-5) /hpf Urine WBC Clumps Moderate H (None) /hpf Ur Squamous Epith Cells <1 (0-4) /hpf Urine Bacteria Rare H (None) /hpf Urine Mucus Rare H (None) /hpf Urine Yeast (Budding) Occasional H (None) /hpf Salicylates mg/dL Urine Opiates Screen Not Detected (NotDetected) Ur Oxycodone Screen Not Detected (NotDetected) Urine Methadone Screen Not Detected (NotDetected) Ur Propoxyphene Screen Not Detected (NotDetected) Acetaminophen ug/mL Ur Barbiturates Screen Not Detected (NotDetected) U Tricyclic Antidepress Not Detected (NotDetected) Ur Phencyclidine Scrn Not Detected (NotDetected) Ur Amphetamines Screen Not Detected (NotDetected) U Methamphetamines Scrn Not Detected (NotDetected) U Benzodiazepines Scrn Not Detected (NotDetected) Urine Cocaine Screen Not Detected (NotDetected) U Marijuana (THC) Screen Not Detected (NotDetected) 01/05/21 01/05/21 01/05/21 Range/Units 18:22 18:22 18:22 WBC (3.8-10.6) k/uL RBC (3.80-5.40) m/uL Hgb (11.4-16.0) gm/dL Hct (34.0-46.0) % MCV (80.0-100.0) fL MCH (25.0-35.0) pg MCHC (31.0-37.0) g/dL RDW (11.5-15.5) % Plt Count (150-450) k/uL MPV Neutrophils % % Lymphocytes % % Monocytes % % Eosinophils % % Basophils % % Neutrophils # (1.3-7.7) k/uL Lymphocytes # (1.0-4.8) k/uL Monocytes # (0-1.0) k/uL Eosinophils # (0-0.7) k/uL Basophils # (0-0.2) k/uL PT (9.0-12.0) sec INR (<1.2) APTT (22.0-30.0) sec Sodium 141 (137-145) mmol/L Potassium 3.9 (3.5-5.1) mmol/L Chloride 107 (98-107) mmol/L Carbon Dioxide 29 (22-30) mmol/L Anion Gap 5 mmol/L BUN 16 (7-17) mg/dL Creatinine 0.82 (0.52-1.04) mg/dL Est GFR (CKD-EPI)AfAm 77 (>60 ml/min/1.73 sqM) Est GFR (CKD-EPI)NonAf 67 (>60 ml/min/1.73 sqM) Glucose 121 H (74-99) mg/dL Calcium 9.3 (8.4-10.2) mg/dL Total Bilirubin 0.4 (0.2-1.3) mg/dL AST 29 (14-36) U/L ALT 15 (4-34) U/L Alkaline Phosphatase 55 (38-126) U/L Ammonia 9 (<30) umol/L Creatine Kinase 53 (30-135) U/L Troponin I <0.012 (0.000-0.034) ng/mL Total Protein 7.2 (6.3-8.2) g/dL Albumin 4.0 (3.5-5.0) g/dL Urine Color Urine Appearance (Clear) Urine pH (5.0-8.0) Ur Specific [place] (1.001-1.035) Urine Protein (Negative) Urine Glucose (UA) (Negative) Urine Ketones (Negative) Urine Blood (Negative) Urine Nitrite (Negative) Urine Bilirubin (Negative) Urine Urobilinogen (<2.0) mg/dL Ur Leukocyte Esterase (Negative) Urine RBC (0-5) /hpf Urine WBC (0-5) /hpf Urine WBC Clumps (None) /hpf Ur Squamous Epith Cells (0-4) /hpf Urine Bacteria (None) /hpf Urine Mucus (None) /hpf Urine Yeast (Budding) (None) /hpf Salicylates <1.0 mg/dL Urine Opiates Screen (NotDetected) Ur Oxycodone Screen (NotDetected) Urine Methadone Screen (NotDetected) Ur Propoxyphene Screen (NotDetected) Acetaminophen <10.0 ug/mL Ur Barbiturates Screen (NotDetected) U Tricyclic Antidepress (NotDetected) Ur Phencyclidine Scrn (NotDetected) Ur Amphetamines Screen (NotDetected) U Methamphetamines Scrn (NotDetected) U Benzodiazepines Scrn (NotDetected) Urine Cocaine Screen (NotDetected) U Marijuana (THC) Screen (NotDetected) - EKG Data EKG Comments: EKG demonstrates normal sinus rhythm with a ventricular rate of 52. [place] interval 162. QRS 78. QTC 3-9. No acute ST segment elevations or depressions Disposition Clinical Impression: Altered mental status, Urinary tract infection Disposition: ADMITTED IP TO THIS HOSP Condition: Stable Is patient prescribed a controlled substance at d/c from ED?: No Decision to Admit Reason: Admit from EC Decision Date: 01/05/21 Decision Time: 20:44
[2021-01-05] MEDS: SODIUM CHLORIDE 0.9% 1,000 ML IV SCH (20:51)
[2021-01-05] MEDS ORDERED: ACETAMINOPHEN TAB 325 MG TAB PO PRN (22:48)
[2021-01-06] MEDS: DONEPEZIL 10 MG TAB PO SCH (07:58)
[2021-01-06] MEDS: amLODIPine 5 MG TAB PO SCH (07:58)
[2021-01-06] MEDS: ASPIRIN 81 MG PO SCH (07:58)
[2021-01-06] MEDS: PROPRANOLOL 10 MG TAB PO SCH ×3 (07:58→21:25)
[2021-01-06] MEDS: ATORVASTATIN 10 MG TAB PO SCH (07:58)
[2021-01-06] MEDS: CITALOPRAM HYDROBROMIDE 10 MG TAB PO SCH (07:58)
[2021-01-06 11:42] LABS: Basophils # (A) 0.02 X 10*3/uL (0.00-0.10); Basophils % (A) 0.4 %; Eosinophils # (A) 0.37 X 10*3/uL (0.04-0.35); HCT 42.9 % (37.2-46.3); HGB 13.9 g/dL (12.0-15.0); Lymphocytes # (A) 0.99 X 10*3/uL (0.90-5.00); Lymphocytes % (A) 18.7 %; MCHC 32.4 g/dL (32.0-37.0); MCV 89.4 fL (80.0-97.0); Mean Platelet Volume 12.3 fL (9.5-12.2); Monocytes # (A) 0.37 X 10*3/uL (0.20-1.00); Neutrophils # (A) 3.54 X 10*3/uL (1.80-7.70); Neutrophils % (A) 66.7 %; Platelet Count 205 X 10*3/uL (140-440); RDW 13.2 % (11.5-14.5)
[2021-01-06 11:58] LABS: African American GFR (CKD) 79.6 (60.0-200.0); Anion Gap 8.9 mmol/L (4.00-12.00); BUN/Creat Ratio 17.5 Ratio (12.00-20.00); Calcium 9.4 mg/dL (8.7-10.3); Carbon Dioxide 27.1 mmol/L (21.6-31.8); Non-African American GFR(CKD) 68.7 (60.0-200.0); Potassium 4.1 mmol/L (3.5-5.5)
--- NOTE | 2021-01-06 16:03 | P.HPIM ---
History of Present Illness 80-year-old female with a moderate to severe dementia was brought in because with increased confusion. This confusion has been going on for last couple weeks. Patient denied any symptoms at this time patient a poor historian unable to get much of the history from the patient. Patient in the past was treated for urinary tract infection at that time patient had E. coli in the urine which is pansensitive. Patient urine is significantly abnormal at this time as well although patient doesn't have any fever doesn't have any leukocytosis. Patient is a poor historian to give me any history chest x-ray did not show any pneumonia patient is not in any narcotics that can cause confusion Review of Systems Except those mentioned above rest of the review of systems unable to obtain due to her advanced dementia Past Medical History Past Medical History: Asthma, Cancer, Chest Pain / Angina, Dementia, GERD/Reflux, Hyperlipidemia, Hypertension, Memory Impairment, Sleep Apnea/CPAP/BIPAP, Thyroid Disorder Additional Past Medical History / Comment(s): Recent UTI, descending thoracic aortic aneurysm, chronic lacunar infarcts R basal ganglia per 11/14/20 medical record, episodes of agitated "spells", bronchitis, osteoporosis, urinary inc ontinence/cystocele/prolapse, severe GERD, LUIS but will not use device, thyroid nodule, skin cancer, vertigo History of Any Multi-Drug Resistant Organisms: None Reported Past Surgical History: Breast Surgery, Cholecystectomy, Joint Replacement Additional Past Surgical History / Comment(s): R breast benign lumpectomy, skin cancer removals, sinus surgery, R total knee arthroplasty. Past Anesthesia/Blood Transfusion Reactions: No Reported Reaction Smoking Status: Never smoker - Past Family History Mother Family Medical History: Cancer Additional Family Medical History / Comment(s): Mother at 36 yrs from uterine/breast cancer. Father Family Medical History: Cancer Additional Family Medical History / Comment(s): Father of liver cancer in his 60s. Medications and Allergies Home Medications Medication Instructions Recorded Confirmed Type Citalopram Hydrobromide [CeleXA] 10 mg PO DAILY 11/14/20 01/05/21 History Donepezil [Aricept] 10 mg PO DAILY 11/14/20 01/05/21 History Meclizine [Antivert] 12.5 mg PO TID 11/14/20 01/05/21 History amLODIPine [Norvasc] 5 mg PO DAILY 11/14/20 01/05/21 History Acetaminophen Tab [Tylenol] 325 mg PO Q6HR PRN tab 11/16/20 01/05/21 Rx Aspirin EC [Ecotrin Low Dose] 81 mg PO DAILY #30 tablet. 11/16/20 01/05/21 Rx Propranolol [Inderal] 10 mg PO TID #90 tab 11/17/20 01/05/21 Rx Atorvastatin Calcium [Lipitor] 10 mg PO DAILY 01/05/21 01/05/21 History Allergies Allergy/AdvReac Type Severity Reaction Status Date / Time No Known Allergies Allergy Verified 01/05/21 18:44 Physical Exam Vitals: Vital Signs Temp Pulse Pulse Resp BP BP Pulse Ox 01/06/21 14:56 98.2 F 58 L 18 159/74 92 L 01/06/21 10:00 98.1 F 75 16 138/67 82 L 01/06/21 07:30 98.0 F 81 16 159/77 99 01/06/21 06:30 97.6 F 64 16 174/71 95 01/05/21 20:46 63 18 143/89 96 01/05/21 19:55 57 L 18 195/80 97 01/05/21 17:46 97.8 F 60 18 202/80 97 Intake and Output 01/06/21 01/06/21 01/06/21 06:59 14:59 22:59 Other: # Voids 1 # Bowel Movements 1 Weight 63.503 kg PHYSICAL EXAMINATION: GENERAL: The patient is alert and oriented x3, not in any acute distress. Well developed, well nourished. HEENT: Pupils are round and equally reacting to light. EOMI. No scleral icterus. No conjunctival pallor. Normocephalic, atraumatic. No pharyngeal erythema. No thyromegaly. CARDIOVASCULAR: S1 and S2 present. No murmurs, rubs, or gallops. PULMONARY: Chest is clear to auscultation, no wheezing or crackles. ABDOMEN: Soft, nontender, nondistended, normoactive bowel sounds. No palpable organomegaly. MUSCULOSKELETAL: No joint swelling or deformity. EXTREMITIES: No cyanosis, clubbing, or pedal edema. NEUROLOGICAL: Gross neurological examination did not reveal any focal deficits. SKIN: No rashes. Results CBC & Chem 7: 01/06/21 07:53 01/06/21 07:53 Labs: Abnormal Lab Results - Last 24 Hours (Table) 01/05/21 01/05/21 01/06/21 Range/Units 18:22 18:22 07:53 MPV 12.3 H (9.5-12.2) fL Eosinophils # 0.37 H (0.04-0.35) X 10*3/uL Glucose 121 H (74-99) mg/dL Urine Appearance Cloudy H (Clear) Urine Protein 1+ H (Negative) Urine Blood Small H (Negative) Ur Leukocyte Esterase Large H (Negative) Urine RBC 13 H (0-5) /hpf Urine WBC >182 H (0-5) /hpf Urine WBC Clumps Moderate H (None) /hpf Urine Bacteria Rare H (None) /hpf Urine Mucus Rare H (None) /hpf Urine Yeast (Budding) Occasional H (None) /hpf Microbiology - Last 24 Hours (Table) 01/05/21 18:22 Urine Culture - Preliminary Urine,Clean Catch Thrombosis Risk Factor Assmnt - Choose All That Apply Any of the Below Risk Factors Present?: Yes Each Factor Represents 1 point: Obesity (BMI >25) Other Risk Factors: Yes Each Risk Factor Represents 2 Points: Malignancy Each Risk Factor Represents 3 Points: Age 75 years or older Other congenital or acquired thrombophilia - If yes, enter type in comment: No Thrombosis Risk Factor Assessment Total Risk Factor Score: 6 Thrombosis Risk Factor Assessment Level: High Risk Assessment and Plan Plan: -Altered mental status, toxicants abruptly most probably from urinary tract infection patient is not on medications that can cause that no other evidence of infection at this time. -Possible definitive tract infection patient was started on Zosyn patient had past history: In the past as mentioned above -Dementia appears to be advanced may be vascular dementia -Gastroesophageal reflux disease -Hyperlipidemia -Hypertension next and-sleep apnea -Hyperthyroidism -Asthma without any acute exacerbation -DVT prophylaxis with Lovenox
[2021-01-06] MEDS: SODIUM CHLORIDE 0.9% 1,000 ML IV SCH (18:16)
[2021-01-06] MEDS: QUEtiapine 25 MG TAB PO PRN (21:25)
[2021-01-07] MEDS: DONEPEZIL 10 MG TAB PO SCH (07:58)
[2021-01-07] MEDS: ATORVASTATIN 10 MG TAB PO SCH (07:58)
[2021-01-07] MEDS: amLODIPine 5 MG TAB PO SCH (07:58)
[2021-01-07] MEDS: ASPIRIN 81 MG PO SCH (07:58)
[2021-01-07] MEDS: PROPRANOLOL 10 MG TAB PO SCH ×3 (07:59→20:41)
[2021-01-07] MEDS: CITALOPRAM HYDROBROMIDE 10 MG TAB PO SCH (07:59)
[2021-01-07] MEDS: SODIUM CHLORIDE 0.9% 1,000 ML IV SCH (13:49)
--- NOTE | 2021-01-07 14:24 | P.PN ---
Subjective 80-year-old female with a moderate to severe dementia was brought in because with increased confusion. This confusion has been going on for last couple weeks. Patient denied any symptoms at this time patient a poor historian unable to get much of the history from the patient. Patient in the past was treated for urinary tract infection at that time patient had E. coli in the urine which is pansensitive. Patient urine is significantly abnormal at this time as well although patient doesn't have any fever doesn't have any leukocytosis. Patient is a poor historian to give me any history chest x-ray did not show any pneumonia patient is not in any narcotics that can cause confusion. 01/07/2021 The patient was confused I believe this is her baseline patient has gram- negative bacilli in the urine elevated cultures patient has been now at the bedside. Review Of systems: Unable to obtain due to her clinical condition All inpatient medications were reviewed and appropriate changes in these medications as dictated in the interval history and assessment and plan. Objective - Vital Signs Vital signs: Vital Signs Temp 98.0 F 01/07/21 07:44 Pulse 65 01/07/21 07:44 Resp 18 01/07/21 08:00 BP 134/80 01/07/21 07:44 Pulse Ox 93 L 01/07/21 07:44 Intake & Output 01/06/21 01/07/21 01/07/21 18:59 06:59 18:59 Weight 63.503 kg Other: Voiding Method Toilet Toilet # Voids 1 1 # Bowel Movements 1 - Exam PHYSICAL EXAMINATION: GENERAL: The patient is alert and oriented x3, not in any acute distress. Well developed, well nourished. HEENT: Pupils are round and equally reacting to light. EOMI. No scleral icterus. No conjunctival pallor. Normocephalic, atraumatic. No pharyngeal erythema. No thyromegaly. CARDIOVASCULAR: S1 and S2 present. No murmurs, rubs, or gallops. PULMONARY: Chest is clear to auscultation, no wheezing or crackles. ABDOMEN: Soft, nontender, nondistended, normoactive bowel sounds. No palpable organomegaly. MUSCULOSKELETAL: No joint swelling or deformity. EXTREMITIES: No cyanosis, clubbing, or pedal edema. NEUROLOGICAL: Gross neurological examination did not reveal any focal deficits. SKIN: No rashes. - Labs CBC & Chem 7: 01/06/21 07:53 01/06/21 07:53 Labs: Microbiology - Last 24 Hours (Table) 01/05/21 18:22 Urine Culture - Preliminary Urine,Clean Catch Gram Neg Bacilli Assessment and Plan Plan: -Altered mental status, toxic encephalopathy most probably from urinary tract infection patient is not on medications that can cause that no other evidence of infection at this time. -Possible very rinaryection patient was started oRocephin patient had history of pansensitive E. coli in the urine -Dementia appears to be advanced may be vascular dementia, patient has sundowners for which we'll use Seroquel -Gastroesophageal reflux disease -Hyperlipidemia -Hypertension -sleep apnea -Hyperthyroidism -Asthma without any acute exacerbation -DVT prophylaxis with Lovenox
[2021-01-07] MEDS: QUEtiapine 25 MG TAB PO PRN (20:41)
[2021-01-08] MEDS: CITALOPRAM HYDROBROMIDE 10 MG TAB PO SCH (08:45)
[2021-01-08] MEDS: SODIUM CHLORIDE 0.9% 1,000 ML IV SCH (08:45)
[2021-01-08] MEDS: amLODIPine 5 MG TAB PO SCH (08:45)
[2021-01-08] MEDS: ASPIRIN 81 MG PO SCH (08:46)
[2021-01-08] MEDS: ATORVASTATIN 10 MG TAB PO SCH (08:46)
[2021-01-08] MEDS: DONEPEZIL 10 MG TAB PO SCH (08:46)
[2021-01-08] MEDS: PROPRANOLOL 10 MG TAB PO SCH ×3 (08:46→22:51)
--- NOTE | 2021-01-08 13:53 | P.PN ---
Subjective 80-year-old female with a moderate to severe dementia was brought in because with increased confusion. This confusion has been going on for last couple weeks. Patient denied any symptoms at this time patient a poor historian unable to get much of the history from the patient. Patient in the past was treated for urinary tract infection at that time patient had E. coli in the urine which is pansensitive. Patient urine is significantly abnormal at this time as well although patient doesn't have any fever doesn't have any leukocytosis. Patient is a poor historian to give me any history chest x-ray did not show any pneumonia patient is not in any narcotics that can cause confusion. 01/07/2021 The patient was confused I believe this is her baseline patient has gram- negative bacilli in the urine elevated cultures patient has been now at the bedside. 01/08/2021 Patient is clinically doing well. Her mental status is at her baseline c ompletely confused. Patient may need placement. Physical therapy and occupational therapy in to evaluate the patient. Medically patient is stable to be discharged for awaiting recommendations from PT and OT and possible placement. Patient can be discharged on 2 more days of Ceftin find it twice a day patient has pansensitive E. coli. Avoid opiates, benzodiazepines, barbiturates, anticholinergic medications. Patient can be continued on Seroquel an as-needed basis for agitation. Avoid fluoroquinolones as they can worsen the confusion and agitation. Review Of systems: Unable to obtain due to her clinical condition All inpatient medications were reviewed and appropriate changes in these medications as dictated in the interval history and assessment and plan. Objective - Vital Signs Vital signs: Vital Signs Temp 97.6 F 01/08/21 07:55 Pulse 70 01/08/21 07:55 Resp 18 01/08/21 07:55 BP 183/83 01/08/21 07:55 Pulse Ox 94 L 01/08/21 07:55 Intake & Output 01/07/21 01/08/21 01/08/21 18:59 06:59 18:59 Other: Voiding Method Toilet Toilet # Voids 3 # Bowel Movements 1 - Exam PHYSICAL EXAMINATION: GENERAL: The patient is alert and oriented x3, not in any acute distress. Well developed, well nourished. HEENT: Pupils are round and equally reacting to light. EOMI. No scleral icterus. No conjunctival pallor. Normocephalic, atraumatic. No pharyngeal erythema. No thyromegaly. CARDIOVASCULAR: S1 and S2 present. No murmurs, rubs, or gallops. PULMONARY: Chest is clear to auscultation, no wheezing or crackles. ABDOMEN: Soft, nontender, nondistended, normoactive bowel sounds. No palpable organomegaly. MUSCULOSKELETAL: No joint swelling or deformity. EXTREMITIES: No cyanosis, clubbing, or pedal edema. NEUROLOGICAL: Gross neurological examination did not reveal any focal deficits. SKIN: No rashes. - Labs CBC & Chem 7: 01/06/21 07:53 01/06/21 07:53 Labs: Microbiology - Last 24 Hours (Table) 01/05/21 18:22 Urine Culture - Final Urine,Clean Catch Escherichia coli Assessment and Plan Plan: -Altered mental status, toxic encephalopathy most probably from urinary tract infection patient is not on medications that can cause that no other evidence of infection at this time. -Possible urinary tract infection patient is on Rocephin and patient has E. coli which is sensitive to multiple antibiotics including Rocephin which will be continued patient can be discharged on Ceftin for 2 more days starting tomorrow -Dementia appears to be advanced may be vascular dementia, patient has sundowners for which we'll use Seroquel -Gastroesophageal reflux disease -Hyperlipidemia -Hypertension -sleep apnea -Hyperthyroidism -Asthma without any acute exacerbation -DVT prophylaxis with Lovenox
[2021-01-08] MEDS: QUEtiapine 25 MG TAB PO PRN (22:54)
[2021-01-09] MEDS: SODIUM CHLORIDE 0.9% 1,000 ML IV SCH (05:39)
[2021-01-09] MEDS: amLODIPine 5 MG TAB PO SCH (07:52)
[2021-01-09] MEDS: ASPIRIN 81 MG PO SCH (07:53)
[2021-01-09] MEDS: ATORVASTATIN 10 MG TAB PO SCH (07:53)
[2021-01-09] MEDS: DONEPEZIL 10 MG TAB PO SCH (07:53)
[2021-01-09] MEDS: PROPRANOLOL 10 MG TAB PO SCH (07:54)
[2021-01-09] MEDS: CITALOPRAM HYDROBROMIDE 10 MG TAB PO SCH (07:54)
[2021-01-09 08:39] VITALS: RESP 16
[2021-01-09 15:02] VITALS: BP 152/74; PULSE 61; TEMP 98.1
--- NOTE | 2021-01-10 09:13 | P.DS ---
Providers Date of admission: 01/05/21 20:45 Expected date of discharge: 01/09/21 Attending physician: Mayela Aviles Primary care physician: Nickie Cintron Hospital Course: Final diagnosis -Altered mental status, toxic encephalopathy most probably from urinary tract infection -Possible urinary tract infection has E. coli which is sensitive to multiple antibiotics -Dementia appears to be advanced may be vascular dementia, patient has sundowners -Gastroesophageal reflux disease -Hyperlipidemia -Hypertension -sleep apnea -Hyperthyroidism -Asthma without any acute exacerbation -DVT prophylaxis with Lovenox Discharge disposition Patient is being discharged in a stable condition with guarded prognosis to home with continued home care. Patient will follow-up with Dr. Nickie cintron upon discharge. Patient will continue with a short course of oral antibiotics in the form of Ceftin 500 mg twice daily for the next 3 days in the outpatient setting to complete the course. Total time taken is greater than 35 minutes. Hospital course 80-year-old female with a moderate to severe dementia was brought in because with increased confusion. This confusion has been going on for last couple weeks. Patient denied any symptoms at this time patient a poor historian unable to get much of the history from the patient. Patient in the past was treated for urinary tract infection at that time patient had E. coli in the urine which is pansensitive. Patient urine is significantly abnormal at this time as well although patient doesn't have any fever doesn't have any leukocytosis. Patient is a poor historian to give me any history chest x-ray did not show any pneumonia patient is not in any narcotics that can cause confusion. 01/07/2021 The patient was confused I believe this is her baseline patient has gram- negative bacilli in the urine elevated cultures patient has been now at the bedside. 01/08/2021 Patient is clinically doing well. Her mental status is at her baseline completely confused. Patient may need placement. Physical therapy and occupational therapy in to evaluate the patient. Medically patient is stable to be discharged for awaiting recommendations from PT and OT and possible placement. Patient can be discharged on 2 more days of Ceftin find it twice a day patient has pansensitive E. coli. Avoid opiates, benzodiazepines, barbiturates, anticholinergic medications. Patient can be continued on Seroquel an as-needed basis for agitation. Avoid fluoroquinolones as they can worsen the confusion and agitation. 01/09/2021 Patient was seen and evaluated by physical therapy today recommending subacute rehab although son who cares for the patient is refusing rehab at this time but is willing to accept Homecare. Patient will be discharged on oral Ceftin 500 mg twice daily for the next 3 days to complete the course. Patient instructed to follow-up with primary care provider Dr. Nickie cintron upon discharge. Family is willing and accepting [facility] upon discharge. Currently no reports of chest pain, shortness of breath, or palpitations. Patient is afebrile. No reports of nausea or vomiting and patient is tolerating diet. Again PT/OT therapy evaluated the patient recommending subacute rehab for her weakness and family is refusing at this time. Guarded prognosis. On exam vital signs are stable. Cardio S1, S2 are muffled. Respiratory shows diminished breath sounds at the bases with no wheezing or rhonchi noted. Abdomen is soft and nontender. Nervous system shows mild diffuse weakness. Please refer to medication reconciliation sheet for a list of medications. Patient Condition at Discharge: Stable Plan - Discharge Summary Discharge Rx Participant: No New Discharge Prescriptions: New Cefuroxime Axetil [Ceftin] 500 mg PO BID 3 Days #6 tab Continue Donepezil [Aricept] 10 mg PO DAILY Citalopram Hydrobromide [CeleXA] 10 mg PO DAILY amLODIPine [Norvasc] 5 mg PO DAILY Meclizine [Antivert] 12.5 mg PO TID Acetaminophen Tab [Tylenol] 325 mg PO Q6HR PRN tab PRN Reason: Mild Pain Or Fever > 100.5 Aspirin EC [Ecotrin Low Dose] 81 mg PO DAILY #30 tablet. Propranolol [Inderal] 10 mg PO TID #90 tab Atorvastatin Calcium [Lipitor] 10 mg PO DAILY Discharge Medication List Citalopram Hydrobromide [CeleXA] 10 mg PO DAILY 11/14/20 [History] Donepezil [Aricept] 10 mg PO DAILY 11/14/20 [History] Meclizine [Antivert] 12.5 mg PO TID 11/14/20 [History] amLODIPine [Norvasc] 5 mg PO DAILY 11/14/20 [History] Acetaminophen Tab [Tylenol] 325 mg PO Q6HR PRN tab 11/16/20 [Rx] Aspirin EC [Ecotrin Low Dose] 81 mg PO DAILY #30 tablet. 11/16/20 [Rx] Propranolol [Inderal] 10 mg PO TID #90 tab 11/17/20 [Rx] Atorvastatin Calcium [Lipitor] 10 mg PO DAILY 01/05/21 [History] Cefuroxime Axetil [Ceftin] 500 mg PO BID 3 Days #6 tab 01/09/21 [Rx] Follow up Appointment(s)/Referral(s): Nickie Cintron MD [Primary Care Provider] - 1-2 days [facility], [NON-STAFF] - As Needed Patient Instructions/Handouts: Urinary Tract Infection in Women (GEN) Activity/Diet/Wound Care/Special Instructions: Activity Limited until follow-up Follow-up with primary care provider upon discharge Continue with oral antibiotics until finished Continue with home care in the outpatient setting Continue heart healthy diet Discharge Disposition: HOME WITH HOME HEALTH SERVICES
== END 2021-01-09 15:34 | disposition home health service (06) ==
LOC: EC 17:27 → 6NMEDSUR 20:45 → 4SSUR 01-06 08:41
PROVIDERS: ADMIT Internal Medicine; ATTEND Internal Medicine
DX: G92 Toxic encephalopathy (principal); R82.71 Bacteriuria; B96.20 Unspecified Escherichia coli [E. coli] as the cause of diseases classified elsewhere; F03.90 Unspecified dementia, unspecified severity, without behavioral disturbance, psychotic disturbance, mood disturbance, and anxiety; I10 Essential (primary) hypertension; G91.9 Hydrocephalus, unspecified; J45.909 Unspecified asthma, uncomplicated; G47.33 Obstructive sleep apnea (adult) (pediatric); E04.1 Nontoxic single thyroid nodule; I71.2 Thoracic aortic aneurysm, without rupture; E05.90 Thyrotoxicosis, unspecified without thyrotoxic crisis or storm; N81.10 Cystocele, unspecified; E78.5 Hyperlipidemia, unspecified; R32 Unspecified urinary incontinence; I67.82 Cerebral ischemia; G31.9 Degenerative disease of nervous system, unspecified; R19.7 Diarrhea, unspecified; K21.9 Gastro-esophageal reflux disease without esophagitis; M81.0 Age-related osteoporosis without current pathological fracture; F41.9 Anxiety disorder, unspecified; E66.9 Obesity, unspecified; Z68.27 Body mass index [BMI] 27.0-27.9, adult; Z20.822 Contact with and (suspected) exposure to COVID-19; Z79.82 Long term (current) use of aspirin; Z79.899 Other long term (current) drug therapy; Z87.440 Personal history of urinary (tract) infections; Z86.73 Personal history of transient ischemic attack (TIA), and cerebral infarction without residual deficits; Z99.89 Dependence on other enabling machines and devices; Z91.19 Patient's noncompliance with other medical treatment and regimen; Z98.890 Other specified postprocedural states; Z85.828 Personal history of other malignant neoplasm of skin; Z90.49 Acquired absence of other specified parts of digestive tract; Z80.3 Family history of malignant neoplasm of breast; Z80.0 Family history of malignant neoplasm of digestive organs; Z80.49 Family history of malignant neoplasm of other genital organs
CPT/HCPCS: 96365; 96366 ×3; 96376; 99285; 36415; 93005; 97162; 97166; 80053; 80048; 82140; 82550; 84484; 85025 ×2; 85610; 85730; 81001; 80306; 80143; 87086; 87077; 87186; 87635; 80179; 70450; G0378 ×6; J0696 ×4

== ENCOUNTER 2021-03-12 16:49 | Emergency (ER) | payer MEDICARE ==
[2021-03-12 16:55] VITALS: TEMP 98.2
[2021-03-12] MEDS ORDERED: SODIUM CHLORIDE 0.9% 1,000 ML IV ONE (17:32)
[2021-03-12 18:02] LABS: Basophils % (A) 0 %; Eosinophils # (A) 0.4 k/uL (0-0.7); Eosinophils % (A) 10 %; HCT 38.8 % (34.0-46.0); Lymphocytes # (A) 0.9 k/uL (1.0-4.8); Lymphocytes % (A) 25 %; MCH 29.3 pg (25.0-35.0); MCHC 33.6 g/dL (31.0-37.0); MCV 87.2 fL (80.0-100.0); Mean Platelet Volume 8.9; Monocytes # (A) 0.2 k/uL (0-1.0); Monocytes % (A) 4 %; Neutrophils # (A) 2.2 k/uL (1.3-7.7); Neutrophils % (A) 57 %; Platelet Count 183 k/uL (150-450); RBC 4.45 m/uL (3.80-5.40); RDW 13.6 % (11.5-15.5); WBC 3.8 k/uL (3.8-10.6)
[2021-03-12 18:14] LABS: Albumin 3.8 g/dL (3.5-5.0); Calcium 9.1 mg/dL (8.4-10.2); Potassium 4.2 mmol/L (3.5-5.1); Total Bilirubin 0.4 mg/dL (0.2-1.3); Total Protein 6.6 g/dL (6.3-8.2)
[2021-03-12 18:19] LABS: Prothrombin Time 10.4 sec (9.0-12.0)
--- NOTE | 2021-03-12 18:55 | XR ---
EXAMINATION TYPE: XR chest 2V DATE OF EXAM: 03/12/2021 COMPARISON: 11/14/2020. HISTORY: Altered mental status. TECHNIQUE: Frontal and lateral views of the chest are obtained. FINDINGS: There is mild perihilar and bibasilar hazy opacities. No significant pleural effusion, or pneumothorax seen. The cardiac silhouette size is borderline enlarged. The osseous structures are intact. IMPRESSION: Mild interstitial edema versus atelectasis.
--- NOTE | 2021-03-12 19:00 | ED ---
General Adult HPI - General Chief complaint: Altered Mental Status Stated complaint: Confused Time Seen by Provider: 03/12/21 17:13 Source: patient, RN notes reviewed Mode of arrival: wheelchair Limitations: no limitations - History of Present Illness Initial comments: Patient is an 80-year-old female that presents to the emergency department with her son who states that she appears to be more confused than usual. Patient does have a history of dementia. Son notes that she is able to walk ambulate on her own. She was recently diagnosed with dementia. Patient did not appear to be in any distress or pain while sitting up in bed during exam interview. Patient was pleasantly confused. She did know her name but did not know where she was at work time and place. She denied any chest pain shortness of breath headache nausea vomiting diarrhea constipation fever fatigue chills. - Related Data Home Medications Medication Instructions Recorded Confirmed Citalopram Hydrobromide [CeleXA] 10 mg PO DAILY 11/14/20 03/12/21 Donepezil [Aricept] 10 mg PO DAILY 11/14/20 03/12/21 Meclizine [Antivert] 12.5 mg PO TID 11/14/20 03/12/21 amLODIPine [Norvasc] 5 mg PO DAILY 11/14/20 03/12/21 Atorvastatin Calcium [Lipitor] 10 mg PO DAILY 01/05/21 03/12/21 Acetaminophen Tab [Tylenol] 325 mg PO DAILY 03/12/21 03/12/21 Acetaminophen/Diphenhydramine 1 tab PO HS 03/12/21 03/12/21 [Tylenol PM 500-25mg] Methenamine/Sodium Salicylate [Azo 2 tab PO DAILY PRN 03/12/21 03/12/21 Urinary Tract Defense Tab] Primidone [Mysoline] 50 mg PO HS 03/12/21 03/12/21 QUEtiapine FUMARATE [SEROquel] 25 mg PO BID 03/12/21 03/12/21 Previous Rx's Medication Instructions Recorded Aspirin EC [Ecotrin Low Dose] 81 mg PO DAILY #30 tablet. 11/16/20 Propranolol [Inderal] 10 mg PO TID #90 tab 11/17/20 Nitrofurantoin Monohyd/M-Cryst 100 mg PO Q12HR #10 cap 03/12/21 [Macrobid] Allergies Allergy/AdvReac Type Severity Reaction Status Date / Time No Known Allergies Allergy Verified 03/12/21 19:18 Review of Systems ROS Statement: Those systems with pertinent positive or pertinent negative responses have been documented in the HPI. ROS Other: All systems not noted in ROS Statement are negative. Past Medical History Past Medical History: Asthma, Cancer, Chest Pain / Angina, Dementia, GERD/Reflux, Hyperlipidemia, Hypertension, Memory Impairment, Sleep Apnea/CPAP/BIPAP, Thyroid Disorder Additional Past Medical History / Comment(s): Recent episodes of agitated "spells", bronchitis, osteoporosis, urinary incontinence/cystocele/prolapse, severe GERD, LUIS but will not use device, thyroid nodule, skin cancer. History of Any Multi-Drug Resistant Organisms: None Reported Past Surgical History: Breast Surgery, Cholecystectomy Additional Past Surgical History / Comment(s): R breast benign lumpectomy, skin cancer removals, sinus surgery Past Anesthesia/Blood Transfusion Reactions: No Reported Reaction Past Psychological History: Anxiety Smoking Status: Never smoker Past Alcohol Use History: None Reported Past Drug Use History: None Reported - Past Family History Mother Family Medical History: Cancer Additional Family Medical History / Comment(s): Mother at 36 yrs from uterine/breast cancer. Father Family Medical History: Cancer Additional Family Medical History / Comment(s): Father of liver cancer in his 60s. General Exam Limitations: no limitations General appearance: alert, in no apparent distress, other (Street of dementia) Head exam: Present: atraumatic, normocephalic, normal inspection Eye exam: Present: normal appearance, PERRL, EOMI. Absent: scleral icterus, conjunctival injection, periorbital swelling Neck exam: Present: normal inspection Respiratory exam: Present: normal lung sounds bilaterally. Absent: respiratory distress, wheezes, rales, rhonchi, stridor Cardiovascular Exam: Present: regular rate, normal rhythm, normal heart sounds. Absent: systolic murmur, diastolic murmur, rubs, gallop, clicks GI/Abdominal exam: Present: soft, normal bowel sounds, other (Discomfort to palpation throughout the abdomen.). Absent: distended, tenderness, guarding, rebound, rigid Extremities exam: Present: normal inspection, full ROM, normal capillary refill. Absent: tenderness, pedal edema, joint swelling, calf tenderness Neurological exam: Present: alert Psychiatric exam: Present: normal affect, normal mood Skin exam: Present: warm, dry, intact, normal color. Absent: rash Course Vital Signs 03/12/21 16:53 Temperature 98.2 F Pulse Rate 77 Respiratory 16 Rate Blood Pressure 174/83 O2 Sat by Pulse 96 Oximetry EKG Findings - EKG Comments: EKG Findings:: Ventricular rate 57 bpm, MD interval 154 ms, QRS duration 82 ms, QTC 399 ms, PRT axes 75/20/18. Sinus bradycardia, otherwise normal ECG. Medical Decision Making - Medical Decision Making 80-year-old female presenting to the emergency room with her son complaining of increased confusion, recently diagnosed with dementia. Labs, EKG, school lunch monitor, chest x-ray, 1 L normal saline ordered. Labs grossly unremarkable. Urinalysis shows 4 white blood cells and positive nitrites, 1 g Rocephin ordered. Case discussed with Dr. Andre patient can discharge home. - Lab Data Result diagrams: 03/12/21 17:52 03/12/21 17:52 Lab Results 03/12/21 03/12/21 03/12/21 Range/Units 17:52 17:52 17:52 WBC 3.8 (3.8-10.6) k/uL RBC 4.45 (3.80-5.40) m/uL Hgb 13.0 (11.4-16.0) gm/dL Hct 38.8 (34.0-46.0) % MCV 87.2 (80.0-100.0) fL MCH 29.3 (25.0-35.0) pg MCHC 33.6 (31.0-37.0) g/dL RDW 13.6 (11.5-15.5) % Plt Count 183 (150-450) k/uL MPV 8.9 Neutrophils % 57 % Lymphocytes % 25 % Monocytes % 4 % Eosinophils % 10 % Basophils % 0 % Neutrophils # 2.2 (1.3-7.7) k/uL Lymphocytes # 0.9 L (1.0-4.8) k/uL Monocytes # 0.2 (0-1.0) k/uL Eosinophils # 0.4 (0-0.7) k/uL Basophils # 0.0 (0-0.2) k/uL PT 10.4 (9.0-12.0) sec INR 1.0 (<1.2) APTT 24.0 (22.0-30.0) sec Sodium (137-145) mmol/L Potassium (3.5-5.1) mmol/L Chloride (98-107) mmol/L Carbon Dioxide (22-30) mmol/L Anion Gap mmol/L BUN (7-17) mg/dL Creatinine (0.52-1.04) mg/dL Est GFR (CKD-EPI)AfAm (>60 ml/min/1.73 sqM) Est GFR (CKD-EPI)NonAf (>60 ml/min/1.73 sqM) Glucose (74-99) mg/dL Calcium (8.4-10.2) mg/dL Total Bilirubin (0.2-1.3) mg/dL AST (14-36) U/L ALT (4-34) U/L Alkaline Phosphatase (38-126) U/L Troponin I (0.000-0.034) ng/mL Total Protein (6.3-8.2) g/dL Albumin (3.5-5.0) g/dL Urine Color Dark Brown Urine Appearance Clear (Clear) Urine pH 5.0 (5.0-8.0) Ur Specific [place] 1.009 (1.001-1.035) Urine Protein Negative (Negative) Urine Glucose (UA) Negative (Negative) Urine Ketones Negative (Negative) Urine Blood Negative (Negative) Urine Nitrite Positive H (Negative) Urine Bilirubin 1+ H (Negative) Urine Urobilinogen 3.0 (<2.0) mg/dL Ur Leukocyte Esterase Negative (Negative) Urine RBC 1 (0-5) /hpf Urine WBC 12 H (0-5) /hpf Ur Squamous Epith Cells 1 (0-4) /hpf Hyaline Casts 3 H (0-2) /lpf Urine Mucus Rare H (None) /hpf Urine Opiates Screen Not Detected (NotDetected) Ur Oxycodone Screen Not Detected (NotDetected) Urine Methadone Screen Not Detected (NotDetected) Ur Propoxyphene Screen Not Detected (NotDetected) Ur Barbiturates Screen Not Detected (NotDetected) U Tricyclic Antidepress Detected H (NotDetected) Ur Phencyclidine Scrn Not Detected (NotDetected) Ur Amphetamines Screen Not Detected (NotDetected) U Methamphetamines Scrn Not Detected (NotDetected) U Benzodiazepines Scrn Not Detected (NotDetected) Urine Cocaine Screen Not Detected (NotDetected) U Marijuana (THC) Screen Not Detected (NotDetected) 03/12/21 03/12/21 Range/Units 17:52 17:52 WBC (3.8-10.6) k/uL RBC (3.80-5.40) m/uL Hgb (11.4-16.0) gm/dL Hct (34.0-46.0) % MCV (80.0-100.0) fL MCH (25.0-35.0) pg MCHC (31.0-37.0) g/dL RDW (11.5-15.5) % Plt Count (150-450) k/uL MPV Neutrophils % % Lymphocytes % % Monocytes % % Eosinophils % % Basophils % % Neutrophils # (1.3-7.7) k/uL Lymphocytes # (1.0-4.8) k/uL Monocytes # (0-1.0) k/uL Eosinophils # (0-0.7) k/uL Basophils # (0-0.2) k/uL PT (9.0-12.0) sec INR (<1.2) APTT (22.0-30.0) sec Sodium 138 (137-145) mmol/L Potassium 4.2 (3.5-5.1) mmol/L Chloride 104 (98-107) mmol/L Carbon Dioxide 29 (22-30) mmol/L Anion Gap 5 mmol/L BUN 15 (7-17) mg/dL Creatinine 0.84 (0.52-1.04) mg/dL Est GFR (CKD-EPI)AfAm 75 (>60 ml/min/1.73 sqM) Est GFR (CKD-EPI)NonAf 65 (>60 ml/min/1.73 sqM) Glucose 111 H (74-99) mg/dL Calcium 9.1 (8.4-10.2) mg/dL Total Bilirubin 0.4 (0.2-1.3) mg/dL AST 31 (14-36) U/L ALT 17 (4-34) U/L Alkaline Phosphatase 46 (38-126) U/L Troponin I <0.012 (0.000-0.034) ng/mL Total Protein 6.6 (6.3-8.2) g/dL Albumin 3.8 (3.5-5.0) g/dL Urine Color Urine Appearance (Clear) Urine pH (5.0-8.0) Ur Specific [place] (1.001-1.035) Urine Protein (Negative) Urine Glucose (UA) (Negative) Urine Ketones (Negative) Urine Blood (Negative) Urine Nitrite (Negative) Urine Bilirubin (Negative) Urine Urobilinogen (<2.0) mg/dL Ur Leukocyte Esterase (Negative) Urine RBC (0-5) /hpf Urine WBC (0-5) /hpf Ur Squamous Epith Cells (0-4) /hpf Hyaline Casts (0-2) /lpf Urine Mucus (None) /hpf Urine Opiates Screen (NotDetected) Ur Oxycodone Screen (NotDetected) Urine Methadone Screen (NotDetected) Ur Propoxyphene Screen (NotDetected) Ur Barbiturates Screen (NotDetected) U Tricyclic Antidepress (NotDetected) Ur Phencyclidine Scrn (NotDetected) Ur Amphetamines Screen (NotDetected) U Methamphetamines Scrn (NotDetected) U Benzodiazepines Scrn (NotDetected) Urine Cocaine Screen (NotDetected) U Marijuana (THC) Screen (NotDetected) - EKG Data -: EKG Interpreted by Me EKG shows normal: sinus rhythm Rate: normal EKG Comments: Ventricular rate 57 bpm, MD interval 154 ms, QRS duration 82 ms, QTC 399 ms, PRT axes 75/20/18. Sinus bradycardia, otherwise normal ECG. EKG similar to previous study. - Radiology Data Radiology results: report reviewed, image reviewed Chest x-ray: Mild interstitial edema. Disposition Clinical Impression: Urinary tract infection Disposition: HOME SELF-CARE Condition: Stable Instructions (If sedation given, give patient instructions): Altered Mental Status (ED) Additional Instructions: Please return to the Emergency Department if symptoms worsen or any other concerns. Take antibiotics as prescribed until complete. Follow-up with primary care the next few days. Prescriptions: Nitrofurantoin Monohyd/M-Cryst [Macrobid] 100 mg PO Q12HR #10 cap Is patient prescribed a controlled substance at d/c from ED?: No Referrals: Nickie Boggs MD [Primary Care Provider] - 1-2 days Time of Disposition: 19:35
[2021-03-12 19:03] LABS: Appearance,Urine Clear (Clear); Bilirubin,Urine 1+ (Negative); Blood,Urine Negative (Negative); Color,Urine Dark Brown; Glucose,Urine (UA) Negative (Negative); Hyaline Casts,Urine 3 /lpf (0-2); Ketones,Urine Negative (Negative); Leukocyte Esterase,Urine Negative (Negative); Mucus,Urine Rare /hpf; Nitrite,Urine Positive (Negative); Protein,Urine Negative (Negative); RBC,Urine 1 /hpf (0-5); Specific Gravity,Urine 1.009 (1.001-1.035); Squamous Epithelial Cell,Urine 1 /hpf (0-4); WBC,Urine 12 /hpf (0-5)
[2021-03-12] MEDS ORDERED: cefTRIAXone IN SWFI 1,000 MG/10 ML SYRINGE IVP STA (19:18)
[2021-03-12 19:19] LABS: Amphetamine Screen,Urine Not Detected (NotDetected); Barbiturate Screen,Urine Not Detected (NotDetected); Benzodiazepines Screen,Urine Not Detected (NotDetected); Cocaine Screen,Urine Not Detected (NotDetected); Methadone Screen, Urine Not Detected (NotDetected); Opiate Screen,Urine Not Detected (NotDetected); Oxycodone Screen, Urine Not Detected (NotDetected); Phencyclidine Screen,Urine Not Detected (NotDetected); Tricyclic Antidepressant,Urine Detected (NotDetected); Urn Cannabinoid Scrn Not Detected (NotDetected)
[2021-03-12 20:51] VITALS: BP 152/86; PULSE 78; RESP 18
== END 2021-03-12 20:28 | disposition home or self-care (01) ==
LOC: EC 16:49
DX: N39.0 Urinary tract infection, site not specified (principal); M81.0 Age-related osteoporosis without current pathological fracture; K21.9 Gastro-esophageal reflux disease without esophagitis; J45.909 Unspecified asthma, uncomplicated; E78.5 Hyperlipidemia, unspecified; F03.90 Unspecified dementia, unspecified severity, without behavioral disturbance, psychotic disturbance, mood disturbance, and anxiety; G47.33 Obstructive sleep apnea (adult) (pediatric); I10 Essential (primary) hypertension; Z79.82 Long term (current) use of aspirin
CPT/HCPCS: 36415; 93005; 80053; 84484; 85025; 85610; 85730; 81001; 80306; 87086; 71046; 99284; 96374; J0696; 96372

== ENCOUNTER 2021-03-16 11:27 | Emergency (ER) | payer MEDICARE ==
[2021-03-16 12:05] VITALS: TEMP 98.3
[2021-03-16] MEDS ORDERED: SODIUM CHLORIDE 0.9% 500 ML 500 ML IV STA (12:32)
--- NOTE | 2021-03-16 12:43 | ED ---
General Adult HPI - General Chief complaint: Abdominal Pain Stated complaint: Buttock Pain Time Seen by Provider: 03/16/21 12:05 Source: patient, family, RN notes reviewed, old records reviewed Mode of arrival: ambulatory Limitations: altered mental status - History of Present Illness Initial comments: This is an 80-year-old female whose son brings her to the emergency department because she is complaining some back pain. Patient is very demented and the complaints he changed per the son. Patient states that her back hurt now because her and her son states that he is at the house with them and that has not occurred. Patient also earlier said her abdominal area hurts but is no longer complaining of any abdominal pain. Patient was here recently for a urinary tract infection and her son says she was constipated yesterday but she took some prune juice and then she went multiple times. Patient is not a reliable historian. Patient denies any chest pain or difficulty breathing son states there's been no vomiting or diarrhea that he knows of his been no cough or shortness of breath at the scene. - Related Data Home Medications Medication Instructions Recorded Confirmed Citalopram Hydrobromide [CeleXA] 10 mg PO DAILY 11/14/20 03/12/21 Donepezil [Aricept] 10 mg PO DAILY 11/14/20 03/12/21 Meclizine [Antivert] 12.5 mg PO TID 11/14/20 03/12/21 amLODIPine [Norvasc] 5 mg PO DAILY 11/14/20 03/12/21 Atorvastatin Calcium [Lipitor] 10 mg PO DAILY 01/05/21 03/12/21 Acetaminophen Tab [Tylenol] 325 mg PO DAILY 03/12/21 03/12/21 Acetaminophen/Diphenhydramine 1 tab PO HS 03/12/21 03/12/21 [Tylenol PM 500-25mg] Methenamine/Sodium Salicylate [Azo 2 tab PO DAILY PRN 03/12/21 03/12/21 Urinary Tract Defense Tab] Primidone [Mysoline] 50 mg PO HS 03/12/21 03/12/21 QUEtiapine FUMARATE [SEROquel] 25 mg PO BID 03/12/21 03/12/21 Previous Rx's Medication Instructions Recorded Aspirin EC [Ecotrin Low Dose] 81 mg PO DAILY #30 tablet. 11/16/20 Propranolol [Inderal] 10 mg PO TID #90 tab 11/17/20 Nitrofurantoin Monohyd/M-Cryst 100 mg PO Q12HR #10 cap 03/12/21 [Macrobid] Allergies Allergy/AdvReac Type Severity Reaction Status Date / Time No Known Allergies Allergy Verified 03/16/21 12:05 Review of Systems ROS Statement: Those systems with pertinent positive or pertinent negative responses have been documented in the HPI. ROS Other: All systems not noted in ROS Statement are negative. Past Medical History Past Medical History: Asthma, Cancer, Chest Pain / Angina, Dementia, GERD/Reflux, Hyperlipidemia, Hypertension, Memory Impairment, Sleep Apnea/CPAP/BIPAP, Thyroid Disorder Additional Past Medical History / Comment(s): Recent episodes of agitated "spells", bronchitis, osteoporosis, urinary incontinence/cystocele/prolapse, severe GERD, LUIS but will not use device, thyroid nodule, skin cancer. COVID 07/22 History of Any Multi-Drug Resistant Organisms: None Reported Past Surgical History: Breast Surgery, Cholecystectomy Additional Past Surgical History / Comment(s): R breast benign lumpectomy, skin cancer removals, sinus surgery Past Anesthesia/Blood Transfusion Reactions: No Reported Reaction Past Psychological History: Anxiety Smoking Status: Never smoker Past Alcohol Use History: None Reported Past Drug Use History: None Reported - Past Family History Mother Family Medical History: Cancer Additional Family Medical History / Comment(s): Mother at 36 yrs from uterine/breast cancer. Father Family Medical History: Cancer Additional Family Medical History / Comment(s): Father of liver cancer in his 60s. General Exam - General Exam Comments Initial Comments: GENERAL: Patient is well-developed and well-nourished. Patient is nontoxic and well- hydrated and is in no acute distress. ENT: Neck is soft and supple. No significant lymphadenopathy is noted. Oropharynx is clear. Moist mucous membranes. Neck has full range of motion without eliciting any pain. EYES: The sclera were anicteric and conjunctiva were pink and moist. Extraocular movements were intact and pupils were equal round and reactive to light. Eyelids were unremarkable. PULMONARY: Unlabored respirations. Good breath sounds bilaterally. No audible rales rhonchi or wheezing was noted. CARDIOVASCULAR: There is a regular rate and rhythm without any murmurs gallops or rubs. ABDOMEN: Soft and nontender with normal bowel sounds. No palpable organomegaly was noted. There is no palpable pulsatile mass. SKIN: Skin is clear with no lesions or rashes and otherwise unremarkable. There are no areas of abrasion or contusions noted NEUROLOGIC: Patient is alert and oriented x3. Cranial nerves II through XII are grossly intact. Motor and sensory are also intact. Normal speech, volume and content. Symmetrical smile. Cerebellar exam grossly intact. MUSCULOSKELETAL: Normal extremities with adequate strength and full range of motion. No lower e xtremity swelling or edema. No calf tenderness. LYMPHATICS: No significant lymphadenopathy is noted PSYCHIATRIC: Normal psychiatric evaluation. Limitations: altered mental status Course Vital Signs 03/16/21 12:02 Temperature 98.3 F Pulse Rate 66 Respiratory 20 Rate Blood Pressure 150/63 O2 Sat by Pulse 96 Oximetry Medical Decision Making - Medical Decision Making KUB shows no acute abnormality. I will back and reevaluated the patient palpated her abdomen and her back lifting her leg she had no complaints whatsoever. - Lab Data Result diagrams: 03/16/21 13:31 03/16/21 13:31 Lab Results 03/16/21 03/16/21 03/16/21 Range/Units 13:31 13:31 13:31 WBC 3.9 (3.8-10.6) k/uL RBC 4.08 (3.80-5.40) m/uL Hgb 12.4 (11.4-16.0) gm/dL Hct 35.8 (34.0-46.0) % MCV 87.8 (80.0-100.0) fL MCH 30.4 (25.0-35.0) pg MCHC 34.6 (31.0-37.0) g/dL RDW 13.4 (11.5-15.5) % Plt Count 171 (150-450) k/uL MPV 9.1 Neutrophils % 56 % Lymphocytes % 25 % Monocytes % 5 % Eosinophils % 12 % Basophils % 1 % Neutrophils # 2.2 (1.3-7.7) k/uL Lymphocytes # 1.0 (1.0-4.8) k/uL Monocytes # 0.2 (0-1.0) k/uL Eosinophils # 0.5 (0-0.7) k/uL Basophils # 0.0 (0-0.2) k/uL Sodium 139 (137-145) mmol/L Potassium 4.4 (3.5-5.1) mmol/L Chloride 104 (98-107) mmol/L Carbon Dioxide 30 (22-30) mmol/L Anion Gap 5 mmol/L BUN 16 (7-17) mg/dL Creatinine 0.85 (0.52-1.04) mg/dL Est GFR (CKD-EPI)AfAm 74 (>60 ml/min/1.73 sqM) Est GFR (CKD-EPI)NonAf 64 (>60 ml/min/1.73 sqM) Glucose 99 (74-99) mg/dL Plasma Lactic Acid Mike 0.9 (0.7-2.0) mmol/L Calcium 9.0 (8.4-10.2) mg/dL Total Bilirubin 0.4 (0.2-1.3) mg/dL AST 33 (14-36) U/L ALT 17 (4-34) U/L Alkaline Phosphatase 51 (38-126) U/L Total Protein 6.9 (6.3-8.2) g/dL Albumin 4.0 (3.5-5.0) g/dL Amylase 57 (30-110) U/L Lipase 94 (23-300) U/L Urine Color Urine Appearance (Clear) Urine pH (5.0-8.0) Ur Specific [place] (1.001-1.035) Urine Protein (Negative) Urine Glucose (UA) (Negative) Urine Ketones (Negative) Urine Blood (Negative) Urine Nitrite (Negative) Urine Bilirubin (Negative) Urine Urobilinogen (<2.0) mg/dL Ur Leukocyte Esterase (Negative) Urine RBC (0-5) /hpf Urine WBC (0-5) /hpf Ur Squamous Epith Cells (0-4) /hpf Urine Bacteria (None) /hpf Hyaline Casts (0-2) /lpf Urine Mucus (None) /hpf 03/16/ Range/Units 13:45 WBC (3.8-10.6) k/uL RBC (3.80-5.40) m/uL Hgb (11.4-16.0) gm/dL Hct (34.0-46.0) % MCV (80.0-100.0) fL MCH (25.0-35.0) pg MCHC (31.0-37.0) g/dL RDW (11.5-15.5) % Plt Count (150-450) k/uL MPV Neutrophils % % Lymphocytes % % Monocytes % % Eosinophils % % Basophils % % Neutrophils # (1.3-7.7) k/uL Lymphocytes # (1.0-4.8) k/uL Monocytes # (0-1.0) k/uL Eosinophils # (0-0.7) k/uL Basophils # (0-0.2) k/uL Sodium (137-145) mmol/L Potassium (3.5-5.1) mmol/L Chloride (98-107) mmol/L Carbon Dioxide (22-30) mmol/L Anion Gap mmol/L BUN (7-17) mg/dL Creatinine (0.52-1.04) mg/dL Est GFR (CKD-EPI)AfAm (>60 ml/min/1.73 sqM) Est GFR (CKD-EPI)NonAf (>60 ml/min/1.73 sqM) Glucose (74-99) mg/dL Plasma Lactic Acid Mike (0.7-2.0) mmol/L Calcium (8.4-10.2) mg/dL Total Bilirubin (0.2-1.3) mg/dL AST (14-36) U/L ALT (4-34) U/L Alkaline Phosphatase (38-126) U/L Total Protein (6.3-8.2) g/dL Albumin (3.5-5.0) g/dL Amylase (30-110) U/L Lipase (23-300) U/L Urine Color Yellow Urine Appearance Cloudy H (Clear) Urine pH 5.5 (5.0-8.0) Ur Specific [place] 1.009 (1.001-1.035) Urine Protein Negative (Negative) Urine Glucose (UA) Negative (Negative) Urine Ketones Negative (Negative) Urine Blood Trace H (Negative) Urine Nitrite Negative (Negative) Urine Bilirubin Negative (Negative) Urine Urobilinogen <2.0 (<2.0) mg/dL Ur Leukocyte Esterase Trace H (Negative) Urine RBC 5 (0-5) /hpf Urine WBC 4 (0-5) /hpf Ur Squamous Epith Cells <1 (0-4) /hpf Urine Bacteria Many H (None) /hpf Hyaline Casts 7 H (0-2) /lpf Urine Mucus Rare H (None) /hpf Disposition Clinical Impression: Abdominal pain Disposition: HOME SELF-CARE Instructions (If sedation given, give patient instructions): Abdominal Pain (ED) Referrals: Nickie Boggs MD [Primary Care Provider] - 1-2 days Time of Disposition: 15:17
[2021-03-16 13:53] LABS: Basophils % (A) 1 %; Eosinophils # (A) 0.5 k/uL (0-0.7); Eosinophils % (A) 12 %; HCT 35.8 % (34.0-46.0); HGB 12.4 gm/dL (11.4-16.0); Lymphocytes % (A) 25 %; MCH 30.4 pg (25.0-35.0); MCHC 34.6 g/dL (31.0-37.0); MCV 87.8 fL (80.0-100.0); Mean Platelet Volume 9.1; Monocytes # (A) 0.2 k/uL (0-1.0); Monocytes % (A) 5 %; Neutrophils # (A) 2.2 k/uL (1.3-7.7); Neutrophils % (A) 56 %; Platelet Count 171 k/uL (150-450); RBC 4.08 m/uL (3.80-5.40); RDW 13.4 % (11.5-15.5); WBC 3.9 k/uL (3.8-10.6)
[2021-03-16 14:03] LABS: Potassium 4.4 mmol/L (3.5-5.1); Total Bilirubin 0.4 mg/dL (0.2-1.3); Total Protein 6.9 g/dL (6.3-8.2)
[2021-03-16 14:07] LABS: Appearance,Urine Cloudy (Clear); Bacteria,Urine Many /hpf; Bilirubin,Urine Negative (Negative); Blood,Urine Trace (Negative); Color,Urine Yellow; Glucose,Urine (UA) Negative (Negative); Hyaline Casts,Urine 7 /lpf (0-2); Ketones,Urine Negative (Negative); Leukocyte Esterase,Urine Trace (Negative); Mucus,Urine Rare /hpf; Nitrite,Urine Negative (Negative); PH, Urine 5.5 (5.0-8.0); Protein,Urine Negative (Negative); RBC,Urine 5 /hpf (0-5); Specific Gravity,Urine 1.009 (1.001-1.035); Squamous Epithelial Cell,Urine <1 /hpf (0-4); Urobilinogen,Urine <2.0 mg/dL (<2.0); WBC,Urine 4 /hpf (0-5)
--- NOTE | 2021-03-16 14:44 | XR ---
EXAMINATION TYPE: XR KUB DATE OF EXAM: 03/16/2021 COMPARISON: None INDICATION: Pain TECHNIQUE: Single view abdomen frontal projection upright view FINDINGS: There is a nonspecific bowel gas pattern with air within small bowel loops as well as the colon. No s uspicious air-fluid levels or differential air-fluid levels are present. No free air under the diaphr agm is evident. No mass effect is evident. Psoas margins are normal. No organomegaly is present. Cholecystectomy clips are present. 0.9 cm left upper quadrant calcification could be related to the s plenic artery or large renal calcification among other etiologies. IMPRESSION: 1. Nonspecific abdomen.
[2021-03-16 16:03] VITALS: BP 142/74; PULSE 75; RESP 17
== END 2021-03-16 16:03 | disposition home or self-care (01) ==
LOC: EC 11:27
DX: R10.9 Unspecified abdominal pain (principal); J45.909 Unspecified asthma, uncomplicated; K21.9 Gastro-esophageal reflux disease without esophagitis; E78.5 Hyperlipidemia, unspecified; I10 Essential (primary) hypertension; G47.30 Sleep apnea, unspecified; E07.9 Disorder of thyroid, unspecified; Z90.49 Acquired absence of other specified parts of digestive tract; Z99.81 Dependence on supplemental oxygen
CPT/HCPCS: 36415; 74018; 80053; 81001; 82150; 83605; 83690; 85025; 96360; 96361; 99284